=== PATIENT | male | born 1975 | race Caucasian/White ===

== ENCOUNTER 2020-12-07 11:07 | Emergency (ER) | payer MEDICAID, SELFPAY ==
--- NOTE | ~2020-12-07 | CT_ITS ---
EXAMINATION: CT BRAIN AND CT CERVICAL SPINE CLINICAL INFORMATION: Extreme AMS. Patient is unable to hold still. COMPARISON: None TECHNIQUE: Axial CT was performed however suboptimal and needs to be repeated. Axial 3 mm thin and reformatted 2 minutes in sagittal coronal images of cervical spine were obtained without contrast. DLP 1619. FINDINGS: BRAIN: The exam is suboptimal and needs to be repeated. CERVICAL SPINE: There is normal cervical lordosis. The vertebral heights and alignment is normal. There is loss of C4-C5, C5-C6 and C6-C7 disc heights are normal. There is no visible acute fracture, dislocation or subluxation seen. The prevertebral and paravertebral soft tissues are normal. The airway is widely patent. The thyroid lobes are symmetric and normal. The lung apices are clear. There is moderate mucoperiosteal thickening left maxillary sinus. CT/CT cervical spine wo con IMPRESSION: Suboptimal CT brain imaging. Recommend repeat CT brain. There is no visible acute fracture, dislocation or subluxation of cervical spine. Moderate mucoperiosteal thickening left maxillary sinus.
--- NOTE | ~2020-12-07 | CT_ITS ---
EXAMINATION: CT HEAD WITHOUT CONTRAST CLINICAL INFORMATION: Altered mental status. COMPARISON: Repeat CT study from suboptimal study from earlier today at 1:21 PM TECHNIQUE: Contiguous axial imaging was performed from the skull base to vertex without intravenous administration of contrast. Coronal and sagittal reformatted images were obtained. This CT examination was performed using dose optimization techniques as appropriate, variously including the following: *Automated exposure control *Adjustment of mA and/or kV according to patient size (this includes techniques or standardized protocols for targeted exams where dose is matched to indication/reason for exam; i.e. extremities or head) *Use of iterative reconstruction technique DLP: 731 mGy-cm FINDINGS: There is no evidence of acute intracranial hemorrhage or territorial infarction. No abnormal mass effect or midline shift is seen. [place] to white matter differentiation is well preserved. No extra-axial fluid collections are identified. The ventricles are normal in size. There is no abnormal attenuation within the brain parenchyma. The osseous structures and soft tissues are normal. Mild mucosal thickening is seen in the maxillary and ethmoid sinuses bilaterally, left greater than right. A retention cyst versus inflammatory polyp at the anterior base of the left maxillary sinus measures 2.4 cm (image 107, series 6). Mild anterior nasal septal deviation, apex to the right. CT/CT head/brain wo con IMPRESSION: 1. No acute intracranial abnormality. 2. Inflammatory changes in the maxillary and ethmoid sinuses as detailed above.
--- NOTE | ~2020-12-07 | XR_ITS ---
EXAMINATION: XR CHEST CLINICAL INFORMATION: Altered mental status. COMPARISON: 12/30/2017 chest radiographs. TECHNIQUE: Frontal view of the chest was obtained. FINDINGS: Lower lung volumes limit evaluation. The lungs are clear. The heart and mediastinal structures are unremarkable. XR/XR chest 1V IMPRESSION: No acute cardiopulmonary process.
--- NOTE | ~2020-12-07 | CT_ITS ---
EXAMINATION: CT BRAIN AND CT CERVICAL SPINE CLINICAL INFORMATION: Extreme AMS. Patient is unable to hold still. COMPARISON: None TECHNIQUE: Axial CT was performed however suboptimal and needs to be repeated. Axial 3 mm thin and reformatted 2 minutes in sagittal coronal images of cervical spine were obtained without contrast. DLP 1619. FINDINGS: BRAIN: The exam is suboptimal and needs to be repeated. CERVICAL SPINE: There is normal cervical lordosis. The vertebral heights and alignment is normal. There is loss of C4-C5, C5-C6 and C6-C7 disc heights are normal. There is no visible acute fracture, dislocation or subluxation seen. The prevertebral and paravertebral soft tissues are normal. The airway is widely patent. The thyroid lobes are symmetric and normal. The lung apices are clear. There is moderate mucoperiosteal thickening left maxillary sinus. CT/CT head/brain wo con IMPRESSION: Suboptimal CT brain imaging. Recommend repeat CT brain. There is no visible acute fracture, dislocation or subluxation of cervical spine. Moderate mucoperiosteal thickening left maxillary sinus.
--- NOTE | 2020-12-07 10:02 | ECG_ITS ---
Test Reason : OVERDOSE Blood Pressure : / mmHG Vent. Rate : 098 BPM Atrial Rate : 098 BPM P-R Int : 150 ms QRS Dur : 100 ms QT Int : 394 ms P-R-T Axes : 054 034 043 degrees QTc Int : 503 ms Normal sinus rhythm Possible Left atrial enlargement Prolonged QT Abnormal ECG No previous ECGs available Referred By: Rahel Cosme Electronically Signed By:MAMTA PEACE
--- NOTE | 2020-12-07 10:03 | ED_ITS ---
HPI - Overdose General Chief Complaint: ETOH/Substance Use Stated Complaint: overdose Time Seen by Provider: 12/07/20 11:13 Source: patient and EMS Mode of arrival: EMS Limitations: altered mental status History of Present Illness complaint: other (AMS found down in bushes) Onset (ago): unknown Timing confirmed by: other (bystander) Intent: unwilling to say Context: Accidental Overdose: uncertain what happened Associated symptoms: lethargy (found sleeping in bushes confused no obvious trauma found with drug paraphernalia) Treatments Prior to Arrival: none Related Data Allergies Allergy/AdvReac Type Severity Reaction Status Date / Time No Known Allergies Allergy Verified 12/07/20 10:29 Review of Systems Review of Systems: ROS unable to be obtained due to altered mental status [facility] Past Medical History Medical History (Updated 12/07/20 @ 16:28 by Rahel Cosme DO) Opiate use Social History Social History (Updated 12/07/20 @ 10:20 by Rahel Cosme DO) Patient Tobacco Use Status: Tobacco use Unknown Use of substances other than those prescribed or required for medical reasons: Yes Advance Directives: Yes Advance Directives Information Provided: Yes Advance Directives on File: No Physical Exam Vital Signs: Vital Signs: Last Vital Signs Temp 98 F 12/07/20 10:29 Pulse 76 12/07/20 16:23 Resp 16 12/07/20 16:23 BP 178/110 H 12/07/20 16:23 Pulse Ox 98 12/07/20 16:23 Body Mass Index 23.0 Appearance: Alert. Oriented X2. Mild acute distress. Eyes: Pupils equal, round and reactive to light. 4mm slight vertical nystagmus ENT: Pharynx normal. Atraumatic Neck: Normal inspection. Neck supple. CVS: Normal heart rate and rhythm. Pulses normal. Respiratory: No respiratory distress. Breath sounds normal. Abdomen: Soft and non-tender. Skin: Skin warm and dry. Normal skin color. Normal skin turgor. Extremities: No lower extremity edema. No calf ttp Neuro: Oriented X 2. No motor deficit. No sensory deficit. Course Course Course Narrative: 2L of IVF and IV ativan for anxiety ordered repeat IV ativan for anxiety signed out to Dr. Paulino pending further workup and observation MDM - Overdose MDM Narrative Medical decision making narrative: 45 yo male hx of opiate use on methadone found with a bag of drug paraphernalia - at this time altered and slightly agitated with no signs of trauma, needs head CT, drug screen, given his nystagmus I am wondering if he has PCP on board. Dispo per results and clearance of substance. Lab Data Result diagrams: 12/07/20 10:22 12/07/20 10:22 Labs: Lab Results 12/07/20 12/07/20 12/07/20 Range/Units 10:22 10:22 10:22 WBC 8.7 (4.8-10.8) X10*3/uL RBC 4.50 L (4.60-5.80) X10*6/uL Hgb 12.3 L (14.0-18.0) g/dl Hct 38.4 L (42-52) % MCV 85.3 (80-98) fL MCH 27.3 (27.0-33.0) pg MCHC 32.0 (31.0-36.0) g/dl RDW 15.7 (11.0-16.0) % Plt Count 219 (160-400) X10*3/uL MPV 10.6 (9.4-12.4) fL Immature Gran % (Auto) 0.5 H (0.0-0.4) % Neut % (Auto) 81.3 H (45-73) % Lymph % (Auto) 10.3 L (20-40) % [place] % (Auto) 7.6 (2-11) % Eos % (Auto) 0.2 (0-4) % Baso % (Auto) 0.1 (0-2) % Lymph # (Auto) 0.9 L (1.2-4.9) X10*3/uL [place] # (Auto) 0.7 (0.1-1.2) X10*3/uL Eos # (Auto) 0.0 (0.0-0.4) X10*3/uL Baso # (Auto) 0.0 (0.0-0.2) X10*3/uL Abs Immat Gran (auto) 0.04 H (0.00-0.03) X10*3/uL Absolute Neuts (auto) 7.0 (2.0-8.3) X10*3/uL Absolute Nucleated RBC 0.000 (0.0-0.012) X10*3/uL Nucleated RBC % (auto) 0.0 (0.0-0.2) /100WBC VBG pH (7.32-7.43) VBG pCO2 mmHg VBG pO2 mmHg VBG HCO3 (22-26) mmol/L VBG O2 Saturation % VBG Base Excess mmol/L Sodium 134 L (135-145) mmol/L Potassium 4.0 (3.3-5.1) mmol/L Chloride 101 (96-108) mmol/L Carbon Dioxide 22 (22-29) mmol/L Anion Gap 15 (12-20) BUN 21 H (9-16) mg/dL Creatinine 0.87 (0.5-1.4) mg/dL Estim Creat Clear Calc 115.7 Estimated GFR > 60 Random Glucose 130 H (60-115) mg/dL Calcium 8.8 (8.4-10.2) mg/dL Magnesium (1.6-2.6) mg/dL Total Bilirubin (0.0-1.0) mg/dL Direct Bilirubin (0.0-0.5) mg/dL AST (5-37) U/L ALT (0-40) U/L Alkaline Phosphatase (39-117) U/L Ammonia 21 (13-55) umol/L Total Creatine Kinase 1105 H (38-174) U/L Troponin I High Sens (<3.5-35.0) ng/L Total Protein (6.5-8.0) g/dL Albumin (3.5-5.0) g/dL Lipase (8-78) U/L TSH (0.32-4.0) uIU/mL Acetaminophen < 1 (<30) mcg/mL Ethyl Alcohol mg/dL COVID-19 ([facility]) (Negative) COVID-19 Clin Com 12/07/20 12/07/20 12/07/20 Range/Units 10:22 10:22 10:22 WBC (4.8-10.8) X10*3/uL RBC (4.60-5.80) X10*6/uL Hgb (14.0-18.0) g/dl Hct (42-52) % MCV (80-98) fL MCH (27.0-33.0) pg MCHC (31.0-36.0) g/dl RDW (11.0-16.0) % Plt Count (160-400) X10*3/uL MPV (9.4-12.4) fL Immature Gran % (Auto) (0.0-0.4) % Neut % (Auto) (45-73) % Lymph % (Auto) (20-40) % [place] % (Auto) (2-11) % Eos % (Auto) (0-4) % Baso % (Auto) (0-2) % Lymph # (Auto) (1.2-4.9) X10*3/uL [place] # (Auto) (0.1-1.2) X10*3/uL Eos # (Auto) (0.0-0.4) X10*3/uL Baso # (Auto) (0.0-0.2) X10*3/uL Abs Immat Gran (auto) (0.00-0.03) X10*3/uL Absolute Neuts (auto) (2.0-8.3) X10*3/uL Absolute Nucleated RBC (0.0-0.012) X10*3/uL Nucleated RBC % (auto) (0.0-0.2) /100WBC VBG pH (7.32-7.43) VBG pCO2 mmHg VBG pO2 mmHg VBG HCO3 (22-26) mmol/L VBG O2 Saturation % VBG Base Excess mmol/L Sodium (135-145) mmol/L Potassium (3.3-5.1) mmol/L Chloride (96-108) mmol/L Carbon Dioxide (22-29) mmol/L Anion Gap (12-20) BUN (9-16) mg/dL Creatinine (0.5-1.4) mg/dL Estim Creat Clear Calc Estimated GFR Random Glucose (60-115) mg/dL Calcium (8.4-10.2) mg/dL Magnesium 2.0 (1.6-2.6) mg/dL Total Bilirubin 0.5 (0.0-1.0) mg/dL Direct Bilirubin 0.3 (0.0-0.5) mg/dL AST 47 H (5-37) U/L ALT 28 (0-40) U/L Alkaline Phosphatase 93 (39-117) U/L Ammonia (13-55) umol/L Total Creatine Kinase (38-174) U/L Troponin I High Sens 7.8 (<3.5-35.0) ng/L Total Protein 7.2 (6.5-8.0) g/dL Albumin 3.8 (3.5-5.0) g/dL Lipase 16 (8-78) U/L TSH (0.32-4.0) uIU/mL Acetaminophen (<30) mcg/mL Ethyl Alcohol < 10 mg/dL COVID-19 ([facility]) (Negative) COVID-19 Clin Com 12/07/20 12/07/20 12/07/20 Range/Units 10:22 10:30 13:50 WBC (4.8-10.8) X10*3/uL RBC (4.60-5.80) X10*6/uL Hgb (14.0-18.0) g/dl Hct (42-52) % MCV (80-98) fL MCH (27.0-33.0) pg MCHC (31.0-36.0) g/dl RDW (11.0-16.0) % Plt Count (160-400) X10*3/uL MPV (9.4-12.4) fL Immature Gran % (Auto) (0.0-0.4) % Neut % (Auto) (45-73) % Lymph % (Auto) (20-40) % [place] % (Auto) (2-11) % Eos % (Auto) (0-4) % Baso % (Auto) (0-2) % Lymph # (Auto) (1.2-4.9) X10*3/uL [place] # (Auto) (0.1-1.2) X10*3/uL Eos # (Auto) (0.0-0.4) X10*3/uL Baso # (Auto) (0.0-0.2) X10*3/uL Abs Immat Gran (auto) (0.00-0.03) X10*3/uL Absolute Neuts (auto) (2.0-8.3) X10*3/uL Absolute Nucleated RBC (0.0-0.012) X10*3/uL Nucleated RBC % (auto) (0.0-0.2) /100WBC VBG pH 7.44 H (7.32-7.43) VBG pCO2 35 mmHg VBG pO2 45 mmHg VBG HCO3 24 (22-26) mmol/L VBG O2 Saturation 77.0 % VBG Base Excess 0.8 mmol/L Sodium (135-145) mmol/L Potassium (3.3-5.1) mmol/L Chloride (96-108) mmol/L Carbon Dioxide (22-29) mmol/L Anion Gap (12-20) BUN (9-16) mg/dL Creatinine (0.5-1.4) mg/dL Estim Creat Clear Calc Estimated GFR Random Glucose (60-115) mg/dL Calcium (8.4-10.2) mg/dL Magnesium (1.6-2.6) mg/dL Total Bilirubin (0.0-1.0) mg/dL Direct Bilirubin (0.0-0.5) mg/dL AST (5-37) U/L ALT (0-40) U/L Alkaline Phosphatase (39-117) U/L Ammonia (13-55) umol/L Total Creatine Kinase (38-174) U/L Troponin I High Sens (<3.5-35.0) ng/L Total Protein (6.5-8.0) g/dL Albumin (3.5-5.0) g/dL Lipase (8-78) U/L TSH 1.78 (0.32-4.0) uIU/mL Acetaminophen (<30) mcg/mL Ethyl Alcohol mg/dL COVID-19 ([facility]) Negative (Negative) COVID-19 Clin Com See Note ECG Data Attestation: I personally reviewed and interpreted this ECG as follows: ECG interpretation date: 12/07/20 ECG interpretation time: 10:19 Interpretation: Rate: 98 Rhythm: NSR [place]: normal Normal P waves. Normal TRAVIS. Normal QRS complex. ST T wave : no YARA qTC: prolonged prior studies: artifact noted no acute ischemia The study has been interpreted contemporaneously by me. . Critical Care Time Critical Care Time Critical Care Time: Yes Total Critical Care Time: 35 Attestation: repeat IV ativan, IVF I attest to this time spent taking care of the patient Discharge Plan Discharge Clinical Impression: Acute alteration in mental status
[2020-12-07 10:27] LABS: MANUAL DIFF FLAG NO
[2020-12-07 10:29] VITALS: BP 197/99; BP 200/120; PULSE 110; PULSE 114; RESP 16; TEMP 36.6; O2SAT 97; BMI 23.0
[2020-12-07 10:30] LABS: Basophils Percent Auto 0.1 % (0-2); Eosinophils Percent Auto 0.2 % (0-4); Hematocrit 38.4 % (42-52); Hemoglobin 12.3 g/dl (14.0-18.0); Imm Gran Abs Auto 0.04 X10*3/uL (0.00-0.03); Imm Gran Pct Auto 0.5 % (0.0-0.4); Lymphocytes Absolute Auto 0.9 X10*3/uL (1.2-4.9); Lymphocytes Percent Auto 10.3 % (20-40); Mean Corpuscular Hemoglobin 27.3 pg (27.0-33.0); Mean Corpuscular Volume 85.3 fL (80-98); Mean Platelet Volume 10.6 fL (9.4-12.4); Monocytes Absolute Auto 0.7 X10*3/uL (0.1-1.2); Monocytes Percent Auto 7.6 % (2-11); Neutrophils Percent Auto 81.3 % (45-73); Platelet Count 219 X10*3/uL (160-400); Red Cell Distribution Width 15.7 % (11.0-16.0); White Blood Count 8.7 X10*3/uL (4.8-10.8)
[2020-12-07 10:35] LABS: Venous Blood Gas Refer to POC result
[2020-12-07 10:35] LABS: VBG Base Excess 0.8 mmol/L; VBG HCO3 24 mmol/L (22-26); VBG pCO2 35 mmHg; VBG pH 7.44 (7.32-7.43); VBG pO2 45 mmHg
[2020-12-07 10:43] LABS: Ammonia 21 umol/L (13-55)
[2020-12-07 10:51] LABS: Ethanol < 10 mg/dL
[2020-12-07 10:54] LABS: Alanine Aminotransferase 28 U/L (0-40); Albumin Level 3.8 g/dL (3.5-5.0); Alkaline Phosphatase 93 U/L (39-117); Aspartate Amino Transferase 47 U/L (5-37); Bilirubin Direct 0.3 mg/dL (0.0-0.5); Bilirubin Total 0.5 mg/dL (0.0-1.0); Lipase 16 U/L (8-78); Total Protein 7.2 g/dL (6.5-8.0)
[2020-12-07 10:55] LABS: Troponin-I High Sensitivity 7.8 ng/L (<3.5-35.0)
[2020-12-07 11:00] LABS: Acetaminophen LAB < 1 mcg/mL (<30); Anion Gap 15 (12-20); Blood Urea Nitrogen 21 mg/dL (9-16); Calcium 8.8 mg/dL (8.4-10.2); Carbon Dioxide 22 mmol/L (22-29); Chloride 101 mmol/L (96-108); Creatinine Clr Calc Pharmacy 115.7; Estimated Glomerular Filt Rate > 60; Glucose Random 130 mg/dL (60-115); Sodium 134 mmol/L (135-145)
[2020-12-07 11:10] LABS: Thyroid Stimulating Hormone 1.78 uIU/mL (0.32-4.0)
--- NOTE | 2020-12-07 11:22 | MHC.RECOVSUP ---
? Reason for consult:Continuity of care o Current location: [address] [place] [address] o Identified substance use concern:Heroin - Overdose - Withdrawal - Seeking ATS (detox) - Support ? Intervention: o o o Community resources provided o Harm reduction discussion ? Plan: o Patient awaiting crisis evaluation o Patient to follow up with [facility] after discharge ? Additional information:PT.is impaired and unable to assist in determining whether or not he wants to move forward with recovery.
[2020-12-07] MEDS: LORazepam 2 MG/ML VIAL IVPUSH ×2 (12:05→16:59)
[2020-12-07] MEDS: Lactated Ringers 1,000 ML 999 ML IV ×2 (12:06)
--- NOTE | 2020-12-07 13:39 | MHC.RECOVSUP ---
? Reason for consult:Continuity of care o Current location: [place] o Identified substance use concern: - Overdose - Withdrawal - Seeking ATS (detox) - Support ? Intervention: o ATS bed search started/completed/in process o MAT started or to be started o Community resources provided o Harm reduction discussion ? Plan: o Referral to [facility] o Bed search in progress to o Follow up tomorrow o Patient awaiting crisis evaluation o Patient to follow up with [facility] after discharge ? Additional information: Attempted to speak with patient again, the patient is still impaired and unable to speak coherently.
[2020-12-07 14:42] LABS: COVID-19 Test Negative (Negative); IDNOW Serial# 08D9AD1C
[2020-12-07] MEDS: LORazepam 2 MG/ML VIAL 1 MG IVPUSH (14:49)
[2020-12-07 16:23] VITALS: BP 178/110; PULSE 76; RESP 16; O2SAT 98
[2020-12-07] MEDS: 0.9 % Sodium Chloride 1,000 ML 999 ML IVCONT (17:33)
--- NOTE | 2020-12-07 18:59 | PC.NURSE ---
Patient changed and bath due to incontinence.
[2020-12-07 20:28] VITALS: BP 191/102; PULSE 70; RESP 16; O2SAT 99
--- NOTE | 2020-12-07 20:29 | PC.NURSE ---
Patient continues wakes easy but fall right back asleep. Patient too lethargic to trial food at this time.
[2020-12-07] MEDS: Dextrose 5 % and 0.45 % NaCl 1,000 ML 125 ML IVCONT (21:48)
[2020-12-08 06:20] LABS: Glucose Urine UA NEG (NEG); Leukocyte Esterase Urine NEG (NEG); Nitrite Urine NEG (NEG); Specific Gravity - Urine 1.015 (1.005-1.025); Urine Blood NEG (NEG); Urine Ketones 5 MG/DL (NEG); Urine Protein NEG (NEG-TRACE)
[2020-12-08 06:21] LABS: Appearance Urine CLEAR; Color Urine YELLOW
[2020-12-08 06:42] LABS: Amphetamine Screen Urine Not Detected (Not Detect); Barbiturates, Urine Not Detected (Not Detect); Benzodiazepines Screen Urine Not Detected (Not Detect); Cannabinoid Screen Urine POSITIVE (Not Detect); Cocaine Screen Urine POSITIVE (Not Detect); Fentanyl, urine POSITIVE (Not Detect); Opiate Screen Urine POSITIVE (Not Detect); Phencyclidine Screen Urine Not Detected (Not Detect)
[2020-12-08 06:45] VITALS: BP 166/99; PULSE 56; RESP 16; TEMP 36.6; O2SAT 98
[2020-12-08] MEDS: Dextrose 5 % and 0.45 % NaCl 1,000 ML 125 ML IVCONT (07:00)
--- NOTE | 2020-12-08 07:47 | PC.NURSE ---
THIS TECH ATTEMPTED BLOOD DRAW, PATIENT SWUNG ARM UPON NEEDLE STICK. UNABLE TO DRAW LABS AT THIS TIME.
--- NOTE | 2020-12-08 09:22 | PC.NURSE ---
pt ambulatory to bathroom with unsteady gait. He is oriented to self, place, off by one day on date, did not know what time it was. Pt gives vague answers when asked questions about where he lives, how he wopuld get home.
--- NOTE | 2020-12-08 13:27 | PC.NURSE ---
sleeping chest rise noted.
--- NOTE | 2020-12-08 16:04 | PC.NURSE ---
woke patient to ambulate in hale. HE has slow gait. He is oriented to place and situation, states he does not remember coming in. Pt states he is homeless, seeking to stay the night in the ER. Explained pt would have to find [facility]. aware.
== END 2020-12-08 16:48 | disposition home or self-care (01) ==
PROVIDERS: Internal Medicine; Emergency Provider Emergency Medicine
DX: R41.82 Altered mental status, unspecified (principal); F11.20 Opioid dependence, uncomplicated; Z20.822 Contact with and (suspected) exposure to COVID-19
CPT/HCPCS: 36415; 70450; 71045; 72125; 80048; 80076; 80143; 80307; 81003; 82077; 82140; 82550; 82803; 83690; 83735; 84443; 84484; 85025; 87635; 93005; 96361; 96375; 96376; 99285; 99291; J2060

== ENCOUNTER 2021-03-02 01:42 | Inpatient (IN) | payer MEDICAID, SELFPAY ==
[2021-03-02] VITALS (10 sets, daily range): BP systolic 106–150; BP diastolic 67–95; PULSE 64–92; RESP 16–19; TEMP 36–37.3; O2SAT 96–98; BMI 22.9
--- NOTE | 2021-03-02 | ECG_ITS ---
Test Reason : EXTREMITY SWELLING Blood Pressure : / mmHG Vent. Rate : 078 BPM Atrial Rate : 078 BPM P-R Int : 148 ms QRS Dur : 120 ms QT Int : 390 ms P-R-T Axes : 030 048 037 degrees QTc Int : 444 ms Normal sinus rhythm Non-specific intra-ventricular conduction delay Borderline ECG When compared with ECG of 07-DEC-2020 10:17, Nonspecific T wave abnormality no longer evident in Inferior leads QT has shortened Heart rate has decreased Referred By: Giovanni Treviño Electronically Signed By:MICHAEL ANAYA MD
--- NOTE | ~2021-03-02 | XR_ITS ---
EXAMINATION: XR HAND, LEFT CLINICAL INFORMATION: Right, swollen COMPARISON: None TECHNIQUE: PA, lateral, and oblique views of the left hand. FINDINGS: Osseous alignment is anatomic. Chronic appearing fragment adjacent to the distal ulna. No evidence of acute fracture. Prominent soft tissue swelling noted around the metacarpals and at the wrist. XR/XR hand LT 2V IMPRESSION: Soft tissue swelling without acute osseous findings.
--- NOTE | ~2021-03-02 | CT_ITS ---
EXAMINATION: CT LEFT FOREARM WITHOUT CONTRAST. CLINICAL INFORMATION: History of IVDA. Significant swelling left main. COMPARISON: Left hand x-rays 03/02/2021. TECHNIQUE: 2 mm thin axial and reformatted 2 mm thin sagittal and coronal images of left forearm were obtained following IV 85 mL Omnipaque 350. FINDINGS: There is moderate left dorsal and palmar soft tissue edema involving the left hand and entire left forearm. There is no underlying abscess or gas collection. There is no visible fracture or cortical abnormality involving the radius or ulna. Visualized carpal bones and intercarpal joint spaces are maintained normal. No bony erosive changes or fractures involving the wrist. CT/CT forearm LT w con IMPRESSION: Diffuse anterior and posterior compartment cellulitis involving the left hand and entire left forearm. No evidence of abscess or bony abnormality.
[2021-03-02 02:50] LABS: MANUAL DIFF FLAG NO
[2021-03-02 02:51] LABS: Basophils Percent Auto 0.4 % (0-2); Eosinophils Absolute Auto 0.2 X10*3/uL (0.0-0.4); Eosinophils Percent Auto 1.8 % (0-4); Hematocrit 33.3 % (42.0-52.0); Hemoglobin 10.6 g/dl (14.0-18.0); Imm Gran Abs Auto 0.05 X10*3/uL (0.00-0.03); Imm Gran Pct Auto 0.5 % (0.0-0.4); Lymphocytes Absolute Auto 2.5 X10*3/uL (1.2-4.9); Lymphocytes Percent Auto 22.6 % (20-40); Mean Corpuscular HGB Conc 31.8 g/dl (31.0-36.0); Mean Corpuscular Hemoglobin 26.9 pg (27.0-33.0); Mean Corpuscular Volume 84.5 fL (80.0-98.0); Mean Platelet Volume 9.3 fL (9.4-12.4); Monocytes Absolute Auto 1.2 X10*3/uL (0.1-1.2); Monocytes Percent Auto 11.1 % (2-11); Neutrophils Percent Auto 63.6 % (45-73); Platelet Count 413 X10*3/uL (160-400); Red Blood Count 3.94 X10*6/uL (4.60-5.80); Red Cell Distribution Width 13.9 % (11.0-16.0); White Blood Count 10.9 X10*3/uL (4.8-10.8)
[2021-03-02 03:04] LABS: Lactic Acid 1.3 mmol/L (0.5-2.0)
[2021-03-02 03:08] LABS: Alanine Aminotransferase 17 U/L (0-40); Albumin Level 3.5 g/dL (3.5-5.0); Alkaline Phosphatase 92 U/L (39-117); Anion Gap 14 (12-20); Aspartate Amino Transferase 24 U/L (5-37); Bilirubin Total 0.2 mg/dL (0.0-1.0); Blood Urea Nitrogen 12 mg/dL (9-16); Calcium 8.7 mg/dL (8.4-10.2); Carbon Dioxide 25 mmol/L (22-29); Chloride 98 mmol/L (96-108); Creatinine Clr Calc Pharmacy 118.4; Estimated Glomerular Filt Rate > 60; Glucose Random 118 mg/dL (60-115); Potassium 4.2 mmol/L (3.3-5.1); Sodium 133 mmol/L (135-145); Total Protein 7.4 g/dL (6.5-8.0)
[2021-03-02] MEDS: Piperacillin Sodium/Tazobactam 3.375 GM in 0.9 % Sodium Chloride 50 ML IV ×4 (03:16→21:18)
[2021-03-02] MEDS: vancomycin HCL 1,000 MG in 0.9 % Sodium Chloride 250 ML 270 MG IV ×2 (03:57→11:30)
--- NOTE | 2021-03-02 04:08 | ED_ITS ---
HPI - Extremity Problem General Chief complaint: Extremity Problem Stated complaint: swollen right hand Time Seen by Provider: 03/02/21 02:36 Source: patient Mode of arrival: ambulatory History of Present Illness HPI Narrative: 45-year-old male with history IVDA and recently began methadone program on Sunday. Who presents today with significant redness/swelling/induration to the left hand extending proximally to mid forearm that he states has been worsening over the past 2-3 days and denies any fevers, chills. Related Data Allergies Allergy/AdvReac Type Severity Reaction Status Date / Time No Known Allergies Allergy Verified 03/02/21 02:25 Review of Systems Review of Systems: Pertinent positives and negatives as stated in HPI and 10 point review of systems is otherwise negative. [facility] Past Medical History Source: nursing notes reviewed Medical History Opiate use Social History Social History Patient Tobacco Use Status: Tobacco use Unknown Advance Directives: No Advance Directives Information Provided: Yes Physical Exam Vital Signs: Vital Signs: Last Vital Signs Temp 99.1 F 03/02/21 04:00 Pulse 92 03/02/21 04:00 Resp 16 03/02/21 04:00 BP 124/67 03/02/21 04:00 Pulse Ox 97 03/02/21 04:00 Body Mass Index 22.9 VITAL SIGNS: Reviewed. GENERAL: Appears older than stated age, in no acute distress. HEAD: Normocephalic/atraumatic EYES: PERRLA, EOMI OROPHARYNX: no oral lesions noted, posterior pharynx clear NECK: Supple, no adenopathy LUNGS: Normal breath sounds. No adventitious sounds or accessory muscle use. SpO2<97> CARDIOVASCULAR: Regular rate and rhythm without noted murmurs ABDOMEN: Soft, non-tender, non-distended with bowel sounds. LEFT UPPER EXTREMITY: Significant redness, swelling, induration to left hand that extends proximally into mid forearm without discrete area of fluctuance noted. SKIN: Inspection of the skin reveals no rashes NEUROLOGIC: Alert and oriented x 4. Strength and sensation to light touch were grossly intact x 4. Course Course Course Narrative: 45-year-old male with history and clinical presentation consistent with left upper extremity cellulitis and was treated with Zosyn/ vancomycin and is otherwise hemodynamically stable but will likely require a short course of IV antibiotics. Review of remaining investigation demonstrating mild leukocytosis and taken in conjunction with clinical findings consistent with significant cellulitis. This case was discussed with the inpatient hospitalist who accepts admission. MDM - Extremity (Nontraumatic) Lab Data Result diagrams: 03/02/21 02:45 03/02/21 02:45 Labs: Lab Results 03/02/21 03/02/21 03/02/21 Range/Units 02:45 02:45 02:45 WBC 10.9 H (4.8-10.8) X10*3/uL RBC 3.94 L (4.60-5.80) X10*6/uL Hgb 10.6 L (14.0-18.0) g/dl Hct 33.3 L (42.0-52.0) % MCV 84.5 (80.0-98.0) fL MCH 26.9 L (27.0-33.0) pg MCHC 31.8 (31.0-36.0) g/dl RDW 13.9 (11.0-16.0) % Plt Count 413 H (160-400) X10*3/uL MPV 9.3 L (9.4-12.4) fL Immature Gran % (Auto) 0.5 H (0.0-0.4) % Neut % (Auto) 63.6 (45-73) % Lymph % (Auto) 22.6 (20-40) % [place] % (Auto) 11.1 H (2-11) % Eos % (Auto) 1.8 (0-4) % Baso % (Auto) 0.4 (0-2) % Lymph # (Auto) 2.5 (1.2-4.9) X10*3/uL [place] # (Auto) 1.2 (0.1-1.2) X10*3/uL Eos # (Auto) 0.2 (0.0-0.4) X10*3/uL Baso # (Auto) 0.0 (0.0-0.2) X10*3/uL Abs Immat Gran (auto) 0.05 H (0.00-0.03) X10*3/uL Absolute Neuts (auto) 7.0 (2.0-8.3) x10*3/uL Absolute Nucleated RBC 0.000 (0.0-0.012) X10*3/uL Nucleated RBC % (auto) 0.0 (0.0-0.2) /100WBC Sodium 133 L (135-145) mmol/L Potassium 4.2 (3.3-5.1) mmol/L Chloride 98 (96-108) mmol/L Carbon Dioxide 25 (22-29) mmol/L Anion Gap 14 (12-20) BUN 12 (9-16) mg/dL Creatinine 0.80 (0.5-1.4) mg/dL Estim Creat Clear Calc 118.4 Estimated GFR > 60 Random Glucose 118 H (60-115) mg/dL Lactic Acid 1.3 (0.5-2.0) mmol/L Calcium 8.7 (8.4-10.2) mg/dL Total Bilirubin 0.2 (0.0-1.0) mg/dL AST 24 D (5-37) U/L ALT 17 (0-40) U/L Alkaline Phosphatase 92 (39-117) U/L Total Protein 7.4 (6.5-8.0) g/dL Albumin 3.5 (3.5-5.0) g/dL Urine Color Urine Appearance Urine pH (5.0-8.0) Ur Specific [place] (1.005-1.025) Urine Protein (NEG-TRACE) MG/DL Urine Glucose (UA) (NEG) MG/DL Urine Ketones (NEG) MG/DL Urine Blood (NEG) Urine Nitrite (NEG) Ur Leukocyte Esterase (NEG) Urine RBC (0) /HPF Urine WBC (0-4) /HPF Ur Squamous Epith Cells /LPF Urine Bacteria /LPF Urine Opiates Screen (Not Detect) Urine Fentanyl Screen (Not Detect) Ur Barbiturates Screen (Not Detect) Ur Phencyclidine Scrn (Not Detect) Ur Amphetamines Screen (Not Detect) U Benzodiazepines Scrn (Not Detect) Urine Cocaine Screen (Not Detect) U Marijuana (THC) Screen (Not Detect) COVID-19 ([facility]) (Negative) COVID-19 Clin Com 03/02/21 03/02/21 03/02/21 Range/Units 02:45 04:01 04:01 WBC (4.8-10.8) X10*3/uL RBC (4.60-5.80) X10*6/uL Hgb (14.0-18.0) g/dl Hct (42.0-52.0) % MCV (80.0-98.0) fL MCH (27.0-33.0) pg MCHC (31.0-36.0) g/dl RDW (11.0-16.0) % Plt Count (160-400) X10*3/uL MPV (9.4-12.4) fL Immature Gran % (Auto) (0.0-0.4) % Neut % (Auto) (45-73) % Lymph % (Auto) (20-40) % [place] % (Auto) (2-11) % Eos % (Auto) (0-4) % Baso % (Auto) (0-2) % Lymph # (Auto) (1.2-4.9) X10*3/uL [place] # (Auto) (0.1-1.2) X10*3/uL Eos # (Auto) (0.0-0.4) X10*3/uL Baso # (Auto) (0.0-0.2) X10*3/uL Abs Immat Gran (auto) (0.00-0.03) X10*3/uL Absolute Neuts (auto) (2.0-8.3) x10*3/uL Absolute Nucleated RBC (0.0-0.012) X10*3/uL Nucleated RBC % (auto) (0.0-0.2) /100WBC Sodium (135-145) mmol/L Potassium (3.3-5.1) mmol/L Chloride (96-108) mmol/L Carbon Dioxide (22-29) mmol/L Anion Gap (12-20) BUN (9-16) mg/dL Creatinine (0.5-1.4) mg/dL Estim Creat Clear Calc Estimated GFR Random Glucose (60-115) mg/dL Lactic Acid (0.5-2.0) mmol/L Calcium (8.4-10.2) mg/dL Total Bilirubin (0.0-1.0) mg/dL AST (5-37) U/L ALT (0-40) U/L Alkaline Phosphatase (39-117) U/L Total Protein (6.5-8.0) g/dL Albumin (3.5-5.0) g/dL Urine Color [place]ANGE Urine Appearance CLEAR Urine pH 6.5 (5.0-8.0) Ur Specific [place] 1.010 (1.005-1.025) Urine Protein NEG (NEG-TRACE) MG/DL Urine Glucose (UA) NEG (NEG) MG/DL Urine Ketones NEG (NEG) MG/DL Urine Blood NEG (NEG) Urine Nitrite NEG (NEG) Ur Leukocyte Esterase NEG (NEG) Urine RBC 0-2 (0) /HPF Urine WBC 0-2 (0-4) /HPF Ur Squamous Epith Cells TRACE /LPF Urine Bacteria TRACE /LPF Urine Opiates Screen POSITIVE H (Not Detect) Urine Fentanyl Screen POSITIVE H (Not Detect) Ur Barbiturates Screen Not Detected (Not Detect) Ur Phencyclidine Scrn Not Detected (Not Detect) Ur Amphetamines Screen Not Detected (Not Detect) U Benzodiazepines Scrn Not Detected (Not Detect) Urine Cocaine Screen POSITIVE H (Not Detect) U Marijuana (THC) Screen Not Detected (Not Detect) COVID-19 ([facility]) Negative (Negative) COVID-19 Clin Com See Note Discharge Plan Discharge Clinical Impression: Cellulitis of left upper extremity Patient Disposition: Admitted As Inpatient
[2021-03-02 04:20] LABS: COVID-19 Test Negative (Negative)
[2021-03-02 05:09] LABS: Appearance Urine CLEAR; Color Urine ORANGE; Glucose Urine UA NEG (NEG); Leukocyte Esterase Urine NEG (NEG); Nitrite Urine NEG (NEG); PH 6.5 (5.0-8.0); Urine Blood NEG (NEG); Urine Ketones NEG (NEG); Urine Protein NEG (NEG-TRACE)
[2021-03-02 05:16] LABS: Bacteria Urine TRACE /LPF; RBC Urine 0-2 /HPF (0); Squamous Epithelial Cell Urine TRACE /LPF; WBC Urine 0-2 /HPF (0-4)
[2021-03-02 05:22] LABS: Amphetamine Screen Urine Not Detected (Not Detect); Barbiturates, Urine Not Detected (Not Detect); Benzodiazepines Screen Urine Not Detected (Not Detect); Cannabinoid Screen Urine Not Detected (Not Detect); Cocaine Screen Urine POSITIVE (Not Detect); Fentanyl, urine POSITIVE (Not Detect); Opiate Screen Urine POSITIVE (Not Detect); Phencyclidine Screen Urine Not Detected (Not Detect)
--- NOTE | 2021-03-02 05:48 | P.HPHOSP_ITS ---
History of Present Illness Date of Service: 03/02/21 Chief Complaint: Left arm pain this is a 45 yo M with hx of hep see, alcohol abuse, IV drug use as the hospital with left arm pain and swelling. Patient reports that is been going on for 4 days. He injects at that site. He also complaining of severe redness, and difficulty moving his hand due to the swelling as well as pain. He also complains of being fevers, chills, and diaphoresis. he has no headache, no change in vision, no chest pain, no shortness of breath, no abdominal pain nausea or vomiting, no diarrhea constipation, no urinary symptoms and no lower extremity edema. On arrival to the ED patient hemodynamically stable with vital significant for temp of 99.1, heart rate of 92, respiratory rate of 16, blood pressure 138/91, satting 97% on room air Labs are significant for WBC count of 10.9, hemoglobin of 10.6, labs otherwise unremarkable. Urine drug screen positive for opioids, fentanyl, cocaine, and marijuana. hand x-ray shows soft tissue swelling without acute osseous findings Patient will be admitted for further management Review of Systems Review of Systems: Yes all other systems are reviewed and are negative [facility] Medical History (Updated 03/02/21 @ 05:57 by Sana Vail MD) Alcohol abuse Hepatitis C Opiate use Pertinent family history: Does not know his family Surgical History (Updated 03/02/21 @ 05:57 by Sana Vail MD) H/O hernia repair Social History (Updated 03/02/21 @ 05:58 by Sana Vail MD) Alcohol intake: current Patient Tobacco Use Status: Current everyday Tobacco user Cigarette Packs Per Day: 1.5 Use of substances other than those prescribed or required for medical reasons: Yes Substance Use Type: Crack/Cocaine, Heroin, Marijuana and Opiates Advance Directives: No Advance Directives Information Provided: Yes Meds Allergies Allergy/AdvReac Type Severity Reaction Status Date / Time No Known Allergies Allergy Verified 03/02/21 02:25 Active Medications: Current Medications Pharmacy Consult (Consult Rx Vancomycin Dosing) 1 each MISCELLANE DAILY PRN PRN Reason: Consult order Pharmacy Consult (Consult Rx Perform Med Rec) 1 each MISCELLANE ONCE PRN PRN Reason: Consult order Physical Exam Vital Signs and Narrative: Vital Signs: Last Vital Signs Temp 99.1 F 03/02/21 04:00 Pulse 92 03/02/21 04:00 Resp 16 03/02/21 04:00 BP 124/67 03/02/21 04:00 Pulse Ox 97 03/02/21 04:00 Body Mass Index 22.9 Const: General: cooperative and no acute distress Orientation/consciousness: patient oriented x3 Eyes: General: appearance normal, both eyes and all related structures Pupils: Equal, round and reactive pupils present Resp: Effort & Inspection: normal respiratory effort Auscultation: clear to auscultation bilaterally Cardio: Rate: regular rate Rhythm: regular rhythm GI: Palpation (GI): Soft to palpation Auscultation: normal bowel sounds Skin: Other: Edema, erythema, redness, severe tenderness of left upper extremity from hand all the way to the elbow General skin exam: no rashes or lesions noted Neuro: General: patient oriented x3 Cranial nerves: Yes Equal, round and reactive pupils present Cognition (Neuro): normal cognition Extrem: Other: Left upper extremity edema, erythema, tenderness, as well as warmth. Limited range of motion due to the swelling and pain Results Labs CBC and Chem 7: 03/02/21 02:45 03/02/21 02:45 Labs: Laboratory Results - last 24 hr 03/02/21 03/02/21 03/02/21 02:45 02:45 02:45 MCV 84.5 MCH 26.9 L MCHC 31.8 RDW 13.9 Plt Count 413 H MPV 9.3 L Immature Gran % (Auto) 0.5 H Neut % (Auto) 63.6 Lymph % (Auto) 22.6 [place] % (Auto) 11.1 H Eos % (Auto) 1.8 Baso % (Auto) 0.4 Lymph # (Auto) 2.5 [place] # (Auto) 1.2 Eos # (Auto) 0.2 Baso # (Auto) 0.0 Abs Immat Gran (auto) 0.05 H Absolute Neuts (auto) 7.0 Absolute Nucleated RBC 0.000 Nucleated RBC % (auto) 0.0 Anion Gap 14 Estim Creat Clear Calc 118.4 Estimated GFR > 60 Random Glucose 118 H Lactic Acid 1.3 Calcium 8.7 Total Bilirubin 0.2 AST 24 D ALT 17 Alkaline Phosphatase 92 Total Protein 7.4 Albumin 3.5 Urine Color Urine Appearance Urine pH Ur Specific [place] Urine Protein Urine Glucose (UA) Urine Ketones Urine Blood Urine Nitrite Ur Leukocyte Esterase Urine RBC Urine WBC Ur Squamous Epith Cells Urine Bacteria Urine Opiates Screen Urine Fentanyl Screen Ur Barbiturates Screen Ur Phencyclidine Scrn Ur Amphetamines Screen U Benzodiazepines Scrn Urine Cocaine Screen U Marijuana (THC) Screen COVID-19 (INGE) COVID-19 Clin Com 03/02/21 03/02/21 03/02/21 02:45 04:01 04:01 MCV MCH MCHC RDW Plt Count MPV Immature Gran % (Auto) Neut % (Auto) Lymph % (Auto) [place] % (Auto) Eos % (Auto) Baso % (Auto) Lymph # (Auto) [place] # (Auto) Eos # (Auto) Baso # (Auto) Abs Immat Gran (auto) Absolute Neuts (auto) Absolute Nucleated RBC Nucleated RBC % (auto) Anion Gap Estim Creat Clear Calc Estimated GFR Random Glucose Lactic Acid Calcium Total Bilirubin AST ALT Alkaline Phosphatase Total Protein Albumin Urine Color ORANGE Urine Appearance CLEAR Urine pH 6.5 Ur Specific [place] 1.010 Urine Protein NEG Urine Glucose (UA) NEG Urine Ketones NEG Urine Blood NEG Urine Nitrite NEG Ur Leukocyte Esterase NEG Urine RBC 0-2 Urine WBC 0-2 Ur Squamous Epith Cells TRACE Urine Bacteria TRACE Urine Opiates Screen POSITIVE H Urine Fentanyl Screen POSITIVE H Ur Barbiturates Screen Not Detected Ur Phencyclidine Scrn Not Detected Ur Amphetamines Screen Not Detected U Benzodiazepines Scrn Not Detected Urine Cocaine Screen POSITIVE H U Marijuana (THC) Screen Not Detected COVID-19 (INGE) Negative COVID-19 Clin Com See Note Imaging Radiologist's Impressions: Impressions Hand X-Ray 03/02/21 02:36 IMPRESSION: Soft tissue swelling without acute osseous findings. Assessment and Plan (1) Cellulitis of left upper extremity: Status: Acute (2) Alcohol abuse with withdrawal: Status: Acute (3) Opiate use: Status: Acute Is male with past medical history of IV drug presents to the hospital with left upper extremity cellulitis # cellulitis of left upper extremity - has significant edema, erythema, tenderness, as well as warmth - history of injecting in that arm - has leukocytosis, afebrile - will start him on IV antibiotics - follow cultures # alcohol abuse with potential for withdrawal - patient reports daily drinking, history of alcohol withdrawal - will start him on phenobarb protocol - thiamine and folic acid # opioid use disorder - patient reports that he is on methadone - will continue DVT prophylaxis: Lovenox Quality Stroke Does the patient have a stroke diagnosis?: No VTE Prior VTE?: No VTE Risk Level:: Medical - moderate - high VTE Device Contraindication: Treatment Not Indicated VTE Drug Contraindication: N/A - Med Ordered
[2021-03-02] MEDS: Morphine Sulfate 4 MG/ML CARTRIDGE IVPUSH (06:37)
--- NOTE | 2021-03-02 06:44 | PC.NURSE ---
This RN medicated with IV morphine per JUN for pain. This RN brought phenobarb per MAR to bedside to medicate pt. Pt informed that volume of phenobarb is too large for arm and needs to go into larger leg muscle. Pt aaox4, states No, no absolutely not. I'm all set with needles. No more needles. I'm all set. Pt educated on reason for phenobarb to prevent ETOH withdrawal, and pt states no, I'm all set. I don't need that. Pt continues to refuse phenobarb. Pt CIWA 0 as charted. Pt on air sampling and monitoring, seizure pads in place, stretcher in low locked position with both side rails raised. Dr Vail made aware of pt's refusal of phenobarb.
--- NOTE | 2021-03-02 07:06 | PHA.PROG ---
Admission Date/Time: March 02, 2021 05:47 Indication: Cellulitis Weight in k.575 kg Adjusted body weight in K.83 kg [place] body weight in K kg Obesity Dosing Indication % IBW: N/A Serum Creatinine - Last 168 Hours 03/02/21 02:45 Creatinine 0.80 Estimated CrCl and GFR - Last 168 Hours 03/02/21 02:45 Estim Creat Clear Calc 118.4 Estimated GFR > 60 Vancomycin Loading Dose: N/A - 1000 mg given in the ED at 0357, will start maintenance dose in 8 hours to create a LD Current Vancomycin Dosing Regimen: 1000 mg Q12H Date and Time for next Vancomycin Level to be drawn: 03/03 @ 999 Pharmacist Comments on Vancomycin Plan: First dose given in the ED on 03/02 @ 0357. Will given next dose in 8 hours at 1200 so vanco concentrations with be therapeutic after 4th dose. Expected AUC with 1000 mg Q12H is 451 with a trough of 13.4 Trough to be drawn 2 hours before 4th dose on 03/03 @ 1000 Pharmacy will monitor renal function daily Shania Winn PharmD Vancomycin dosing will take advantage of [employer] as a clinical decision support tool that uses Bayesian modeling to calculate individual patient's pharmacokinetic parameters and forecast the patient's drug concentration time course with the target goal AUC 24 range of 400 - 600 mg/L/hr.
--- NOTE | 2021-03-02 08:09 | PHA.MEDREC ---
Pharmacy Consult ? Medication Reconciliation Pharmacy has completed the medication reconciliation. Patient reports he use to have a bunch of psych medications but has not taken them for a while. I called the pharmacy to confirm what he reported was accurate and he was a good historian. The medications were last filled June 2020 are as followed: - Gabapentin 600 mg TID - Topamax 100 mg BID - Wellbutrin XL 150 mg QD - Clonidine 0.1 mg BID - Elquis 5 mg BID - ProAir Patient also reports he is on methadone. I confirmed with Shannon at [facility] that he takes 45 mg daily. Shania Winn, PharmD
[2021-03-02] MEDS: Enoxaparin Sodium 40 MG/0.4 ML SYRINGE SUBCUT (08:38)
[2021-03-02] MEDS: methADONE HCl 20 MG/2 ML ORAL.CONC 45 MG PO (08:38)
[2021-03-02] MEDS: PHENobarbitaL sodium 130 MG/ML VIAL 290 MG IM (08:39)
[2021-03-02] MEDS: 0.9 % Sodium Chloride Flush 3 ML SYRINGE IVFLUSH ×2 (08:40→18:38)
--- NOTE | 2021-03-02 08:59 | PC.NURSE ---
cooperative w security , pt reports needles in his bags, belongings secured in decon room and security checked the pt as well
--- NOTE | 2021-03-02 09:06 | PC.NURSE ---
PER SECURITY ALL PATIENTS BELONGINGS ARE IN DECON
[2021-03-02 10:01] LABS: MANUAL DIFF FLAG NO
[2021-03-02 10:08] LABS: Basophils Percent Auto 0.4 % (0-2); Eosinophils Absolute Auto 0.2 X10*3/uL (0.0-0.4); Eosinophils Percent Auto 2.6 % (0-4); Hematocrit 32.4 % (42.0-52.0); Hemoglobin 10.3 g/dl (14.0-18.0); Imm Gran Abs Auto 0.02 X10*3/uL (0.00-0.03); Imm Gran Pct Auto 0.3 % (0.0-0.4); Lymphocytes Absolute Auto 1.8 X10*3/uL (1.2-4.9); Lymphocytes Percent Auto 26.2 % (20-40); Mean Corpuscular HGB Conc 31.8 g/dl (31.0-36.0); Mean Corpuscular Hemoglobin 26.6 pg (27.0-33.0); Mean Corpuscular Volume 83.7 fL (80.0-98.0); Mean Platelet Volume 9.2 fL (9.4-12.4); Monocytes Absolute Auto 0.9 X10*3/uL (0.1-1.2); Monocytes Percent Auto 13.4 % (2-11); Neutrophils Percent Auto 57.1 % (45-73); Platelet Count 380 X10*3/uL (160-400); Red Blood Count 3.87 X10*6/uL (4.60-5.80); Red Cell Distribution Width 14.1 % (11.0-16.0); White Blood Count 6.9 X10*3/uL (4.8-10.8)
[2021-03-02 10:25] LABS: Anion Gap 7 (12-20); Blood Urea Nitrogen 10 mg/dL (9-16); Calcium 8.4 mg/dL (8.4-10.2); Carbon Dioxide 29 mmol/L (22-29); Chloride 104 mmol/L (96-108); Creatinine Clr Calc Pharmacy 124.6; Estimated Glomerular Filt Rate > 60; Glucose Random 106 mg/dL (60-115); Potassium 4.4 mmol/L (3.3-5.1); Sodium 136 mmol/L (135-145)
[2021-03-02] MEDS: PHENobarbitaL sodium 130 MG/ML VIAL 218 MG IM ×2 (11:30→15:17)
--- NOTE | 2021-03-02 14:34 | PM.EVENT ---
Event Note Date of Service: 03/02/21 Event Note: Day Team Note in Brief S Pt boarding in the ED, seen there Reports pain and erythema is improved as his is ROM in the hand Denies any fevers and chills. O Vitals - last documented and stable Gen - NAD, resting comfortable Chest - clear, RRR Ext - LUE with significant edema without any fluctuance; minimal erythema A/P 45 yo M with active IVDU who presents with LUE swelling of 5 days duration after injecting there continue IV antibiotics clinically appears improved await blood cultures to rule out bacteremia - likely 10-14 days of antibiotics d/w the patient the need to stay in the hospital at this time for treatment. He understands and is willing to stay at this time. Risks of AMA (worsening of his cellulitis with potential of loss of limb, bacteremia, endocarditis and even ) have been explained to him.
[2021-03-02] MEDS: PHENobarbitaL 15 MG TABLET 45 MG PO (21:18)
[2021-03-03] MEDS: 0.9 % Sodium Chloride Flush 3 ML SYRINGE IVFLUSH ×3 (00:23→18:23)
[2021-03-03] MEDS: vancomycin HCL 1,000 MG in 0.9 % Sodium Chloride 250 ML 270 MG IV (00:23)
[2021-03-03 03:35] VITALS: BP 134/99; PULSE 76; RESP 18; TEMP 36; O2SAT 96
[2021-03-03] MEDS: Piperacillin Sodium/Tazobactam 3.375 GM in 0.9 % Sodium Chloride 50 ML IV ×4 (04:06→21:35)
[2021-03-03] MEDS: methADONE HCl 20 MG/2 ML ORAL.CONC 45 MG PO (09:27)
[2021-03-03] MEDS: PHENobarbitaL 15 MG TABLET 45 MG PO ×2 (09:28→21:35)
--- NOTE | 2021-03-03 09:32 | HO.PM.IMPN ---
Subjective Subjective Date of Service: 03/03/21 Interval History: seen and examined this AM reports arm pain and swelling improved reports he was treated for endocarditis last year at [facility] denies fevers or chills refused labs this AM Review of Systems negative except interval history Physical Exam Vital Signs: Vital Signs: Last Vital Signs Temp 96.8 F 03/03/21 03:35 Pulse 76 03/03/21 03:35 Resp 18 03/03/21 03:35 BP 134/99 H 03/03/21 03:35 Pulse Ox 96 03/03/21 03:35 Body Mass Index 22.9 Const: Other: General - no acute distress, appears comfortable Cardiovascular - regular rate and rhythm, S1-S2 Lungs - normal respiratory effort, clear to auscultation bilaterally, no wheezing Abdomen - soft, nontender, no rebound or guarding Extremities - LUE with significant swelling - slightly less compared to yesterday, significant hand swelling, ROM in hand limited due to edema Neuro - awake and alert, no focal deficits Objective Data Active Medications Acetaminophen (Acetaminophen 325 Mg Tablet) 650 mg PO Q6H PRN PRN Reason: Pain, Mild (Pain Scale 1-3) Docusate Sodium (Docusate Sodium 100 Mg Capsule) 100 mg PO DAILY PRN PRN Reason: Constipation Enoxaparin Sodium (Enoxaparin Sodium 40 Mg/0.4 Ml Syringe) 40 mg SUBCUT Q24H [facility] Last Admin: 03/03/21 09:31 Dose: Not Given Documented by: EPHRAIM Non-Admin Reason: Patient Refused Piperacillin Sod/Tazobactam (Sod 3.375 gm/ Sodium Chloride) 50 mls @ 100 mls/hr IV Q6H [facility] Last Admin: 03/03/21 09:27 Dose: 100 mls/hr Documented by: EPHRAIM Vancomycin HCl 1,000 mg/ (Sodium Chloride) 270 mls @ 270 mls/hr IV Q12H [facility] Last Infusion: 03/03/21 02:08 Dose: 0 mls/hr Documented by: AINSLEY Medication (No Benzodiazepines) 1 each MISCELLANE DAILY [facility] Methadone HCl (Methadone Hcl 20 Mg/2 Ml Oral.Conc) 45 mg PO DAILY [facility] Last Admin: 03/03/21 09:27 Dose: 45 mg Documented by: EPHRAIM Morphine Sulfate (Morphine Sulfate 4 Mg/Ml Cartridge) 4 mg IVPUSH Q4H PRN; Protocol PRN Reason: Pain, Severe (Pain Scale 7-10) Last Admin: 03/02/21 06:37 Dose: 4 mg Documented by: LUBNA Ondansetron HCl (Ondansetron Hcl 4 Mg/2 Ml Vial) 4 mg IVPUSH Q8H PRN PRN Reason: Nausea and Vomiting Pharmacy Consult (Consult Rx Perform Med Rec) 1 each MISCELLANE ONCE PRN PRN Reason: Consult order Pharmacy Consult (Consult Rx Vancomycin Dosing) 1 each MISCELLANE DAILY PRN PRN Reason: Consult order Phenobarbital (Phenobarbital 15 Mg Tablet) 45 mg PO BID [facility]; Protocol Stop: 03/04/21 09:01 Last Admin: 03/03/21 09:28 Dose: 45 mg Documented by: EPHRAIM Phenobarbital (Phenobarbital 30 Mg Tablet) 30 mg PO BID [facility]; Protocol Stop: 03/06/21 09:01 Phenobarbital (Phenobarbital 30 Mg Tablet) 30 mg PO DAILY [facility]; Protocol Stop: 03/08/21 09:01 Sodium Chloride (0.9 % Sodium Chloride Flush 3 Ml Syringe) 3 ml IVFLUSH [facility] Last Admin: 03/03/21 09:27 Dose: 3 ml Documented by: EPHRAIM Labs CBC & Chem 7: 03/02/21 09:57 03/02/21 09:57 Labs: Laboratory Results - last 24 hr 03/02/21 03/02/21 09:57 09:57 MCV 83.7 MCH 26.6 L MCHC 31.8 RDW 14.1 Plt Count 380 MPV 9.2 L Immature Gran % (Auto) 0.3 Neut % (Auto) 57.1 Lymph % (Auto) 26.2 [place] % (Auto) 13.4 H Eos % (Auto) 2.6 Baso % (Auto) 0.4 Lymph # (Auto) 1.8 [place] # (Auto) 0.9 Eos # (Auto) 0.2 Baso # (Auto) 0.0 Abs Immat Gran (auto) 0.02 Absolute Neuts (auto) 4.0 Absolute Nucleated RBC 0.000 Nucleated RBC % (auto) 0.0 Anion Gap 7 L Estim Creat Clear Calc 124.6 Estimated GFR > 60 Random Glucose 106 Calcium 8.4 Microbiology Microbiology Results: Microbiology 03/02/21 02:58 Blood Culture - Preliminary Blood - Venous No growth after 24 hours. 03/02/21 02:45 Blood Culture - Preliminary Blood - Venous No growth after 24 hours. Assessment and Plan (1) Cellulitis of left upper extremity: Status: Acute Assessment and Plan: This is a 45 yo M with a PMH of OUD, actively using with last use about 4-5 days prior to admission, who presented to the ED with complaints of LUE swelling after injecting. He is admitted for further treamtent. 1. LUE Cellulitis due to IVDU swelling appears improved, but still remains significant; will check CT with contrast continue vancomcyin/zosyn for now blood cx negative at 24 hours patient refused labs this AM -- he has been encouraged to allow them 2. Alcohol abuse and high risk for withdrawal on phenobarb continue 3. OUD methadone Full Code DVT pptx, Lovenox Quality Stroke Does the patient have a stroke diagnosis?: No VTE Prior VTE?: No VTE Risk Level:: Medical - moderate - high VTE Device Contraindication: Treatment Not Indicated VTE Drug Contraindication: N/A - Med Ordered
[2021-03-03 10:25] LABS: Creatinine Clr Calc Pharmacy 118.4; Estimated Glomerular Filt Rate > 60
[2021-03-03 10:33] LABS: Vancomycin Trough 9.1 mcg/mL (10.0-20.0)
--- NOTE | 2021-03-03 10:45 | MHC.RECOVRN ---
Attempted to meet with pt with Yamile Mendez NP, to assess for withdrawal symptoms and desire to increase methadone dose. Pt recently began OTP and titration may be necessary while inpatient. Pt laying in bed, agitated and difficult to engage in conversation. Explained to pt how we could help, pt consistently states It doesn't matter. Do whatever. Reiterated that Addiction [facility] could adjust methadone dose if needed, pt declined to respond. Pt encouraged to notify RN if symptoms occur or if pt would like to discuss recovery further. T/w available if needed.
--- NOTE | 2021-03-03 10:47 | HE.PHANOTE ---
Vancomycin Dosing Addendum Vancomycin trough 9.1 this morning. Increasing dose from 1000 mg q12h to 1250 mg 12h for a predicted AUC of 496. Next trough due 03/04/21 @2100.
[2021-03-03 11:32] VITALS: BP 141/93; PULSE 75; RESP 18; TEMP 37.3; O2SAT 97
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
[2021-03-03] MEDS: iohexoL 350 MG/ML 100 ML INFUS..BTL IV (12:32)
[2021-03-03] MEDS: vancomycin HCL 1,250 MG in 0.9 % Sodium Chloride 250 ML 166.67 MG IV ×2 (12:46→23:24)
[2021-03-03 15:56] VITALS: BP 144/83; PULSE 70; RESP 17; TEMP 36.5; O2SAT 98
[2021-03-03 19:27] VITALS: BP 142/89; PULSE 78; RESP 17; TEMP 37.1; O2SAT 96
[2021-03-04] MEDS: Piperacillin Sodium/Tazobactam 3.375 GM in 0.9 % Sodium Chloride 50 ML IV ×2 (04:24→11:05)
[2021-03-04 07:18] VITALS: BP 160/90; PULSE 75; RESP 18; TEMP 36.6; O2SAT 99
[2021-03-04] MEDS: PHENobarbitaL 15 MG TABLET 45 MG PO (08:35)
[2021-03-04] MEDS: 0.9 % Sodium Chloride Flush 3 ML SYRINGE IVFLUSH (08:38)
[2021-03-04] MEDS: methADONE HCl 20 MG/2 ML ORAL.CONC 45 MG PO (08:38)
--- NOTE | 2021-03-04 09:08 | P.PNIM_ITS ---
Subjective Subjective Date of Service: 03/04/21 Interval History: seen and examined this AM continue to improve daily pain slowly improving denies any fevers or chills Review of Systems negative except interval history Physical Exam Vital Signs: Vital Signs: Last Vital Signs Temp 97.9 F 03/04/21 07:18 Pulse 75 03/04/21 07:18 Resp 18 03/04/21 07:18 BP 160/90 H 03/04/21 07:18 Pulse Ox 99 03/04/21 07:18 Body Mass Index 22.9 Const: Other: General - no acute distress, appears comfortable Cardiovascular - regular rate and rhythm, S1-S2 Lungs - normal respiratory effort, clear to auscultation bilaterally, no whee zing Abdomen - soft, nontender, no rebound or guarding Extremities - significant improvement in LUE swelling, able to make a fist, erythema resolved Neuro - awake and alert, no focal deficits Objective Data Active Medications Acetaminophen (Acetaminophen 325 Mg Tablet) 650 mg PO Q6H PRN PRN Reason: Pain, Mild (Pain Scale 1-3) Docusate Sodium (Docusate Sodium 100 Mg Capsule) 100 mg PO DAILY PRN PRN Reason: Constipation Enoxaparin Sodium (Enoxaparin Sodium 40 Mg/0.4 Ml Syringe) 40 mg SUBCUT Q24H [facility] Last Admin: 03/04/21 08:39 Dose: Not Given Documented by: AILEEN Non-Admin Reason: Patient Refused Piperacillin Sod/Tazobactam (Sod 3.375 gm/ Sodium Chloride) 50 mls @ 100 mls/hr IV Q6H [facility] Last Infusion: 03/04/21 05:36 Dose: 0 mls/hr Documented by: AINSLEY Vancomycin HCl 1,250 mg/ (Sodium Chloride) 250 mls @ 166.667 mls/hr IV Q12H [facility] Last Infusion: 03/04/21 02:32 Dose: 0 mls/hr Documented by: AINSLEY Medication (No Benzodiazepines) 1 each MISCELLANE DAILY [facility] Methadone HCl (Methadone Hcl 20 Mg/2 Ml Oral.Conc) 45 mg PO DAILY [facility] Last Admin: 03/04/21 08:38 Dose: 45 mg Documented by: AILEEN Morphine Sulfate (Morphine Sulfate 4 Mg/Ml Cartridge) 4 mg IVPUSH Q4H PRN; Protocol PRN Reason: Pain, Severe (Pain Scale 7-10) Last Admin: 03/02/21 06:37 Dose: 4 mg Documented by: LUBNA Ondansetron HCl (Ondansetron Hcl 4 Mg/2 Ml Vial) 4 mg IVPUSH Q8H PRN PRN Reason: Nausea and Vomiting Pharmacy Consult (Consult Rx Perform Med Rec) 1 each MISCELLANE ONCE PRN PRN Reason: Consult order Pharmacy Consult (Consult Rx Vancomycin Dosing) 1 each MISCELLANE DAILY PRN PRN Reason: Consult order Phenobarbital (Phenobarbital 30 Mg Tablet) 30 mg PO BID [facility]; Protocol Stop: 03/06/21 09:01 Phenobarbital (Phenobarbital 30 Mg Tablet) 30 mg PO DAILY [facility]; Protocol Stop: 03/08/21 09:01 Sodium Chloride (0.9 % Sodium Chloride Flush 3 Ml Syringe) 3 ml IVFLUSH QSHIFT [facility] Last Admin: 03/04/21 08:38 Dose: 3 ml Documented by: AILEEN Labs CBC & Chem 7: 03/02/21 09:57 03/03/21 10:00 Labs: Laboratory Results - last 24 hr 03/03/21 03/03/21 03/03/21 10:00 10:00 10:00 Estim Creat Clear Calc Cancelled 118.4 Estimated GFR Cancelled > 60 Vancomycin Trough 9.1 L Microbiology Microbiology Results: Microbiology 03/02/21 02:45 Blood Culture - Preliminary Blood - Venous No growth after 48 hours. 03/02/21 02:58 Blood Culture - Preliminary Blood - Venous Prelim: GPC Gram Stain only Assessment and Plan (1) Cellulitis of left upper extremity: Status: Acute Assessment and Plan: This is a 45 yo M with a PMH of OUD, actively using with last use about 4-5 days prior to admission, who presented to the ED with complaints of LUE swelling after injecting. He is admitted for further treamtent. 1. LUE Cellulitis due to IVDU - from hand to elbow (>50% of limb) 1/2 blood cx positive for GPC -- suspect coag neg staph, will await final result -- if negative, anticipate transition to Augmentin/Doxy for [address] consistent with diffuse cellulitis -- no body involvement continue vancomcyin/zosyn for now 2. Alcohol abuse and high risk for withdrawal on phenobarb continue 3. OUD methadone CARE team consulted Full Code DVT pptx, Lovenox dispo: anticipate d/c within the next 24 hours Quality Stroke Does the patient have a stroke diagnosis?: No VTE Prior VTE?: No VTE Risk Level:: Medical - moderate - high VTE Device Contraindication: Treatment Not Indicated VTE Drug Contraindication: N/A - Med Ordered
[2021-03-04 11:27] VITALS: BP 132/81; PULSE 71; RESP 18; TEMP 36.6; O2SAT 96
[2021-03-04] MEDS: vancomycin HCL 1,250 MG in 0.9 % Sodium Chloride 250 ML 166.67 MG IV (11:49)
--- NOTE | 2021-03-04 12:37 | PM.DS ---
DS: Providers Provider Date of Service: 03/04/21 Date of admission: 03/02/21 05:47 Date of discharge: 03/04/21 Primary care physician: [facility] Consults: 03/04/21 07:39 Consult to Care Team Routine Comment: Reason for consultation: polysubstance abuse DS: Diagnosis Discharge Diagnosis (1) Cellulitis of left upper extremity: Status: Acute DS: Summary Hospital Course Hospital Course: HPI From the admission H&P: this is a 45 yo M with hx of hep see, alcohol abuse, IV drug use as the hospital with left arm pain and swelling.? Patient reports that is been going on for 4 days.? He injects at that site.? He also complaining of severe redness, and difficulty moving his hand due to the swelling as well as pain.? He also complains of being fevers, chills, and diaphoresis.? he has no headache, no change in vision, no chest pain, no shortness of breath, no abdominal pain nausea or vomiting, no diarrhea constipation, no urinary symptoms and no lower extremity edema. On arrival to the ED patient hemodynamically stable with vital significant for temp of 99.1, heart rate of 92, respiratory rate of 16, blood pressure 138/91, satting 97% on room air Labs are significant for? WBC count of 10.9, hemoglobin of 10.6, labs otherwise unremarkable.? Urine drug screen positive for opioids, fentanyl, cocaine, and marijuana.? hand x-ray shows soft tissue swelling without acute osseous findings Patient will be admitted for further management Hospital Course: Patient was admitted for LUE celluitis (>50% of the Limb). CT scan was checked which was negative any osseous abnormalities / abscess. He was treated with IV vancomcyin and zosyn. His blood cultures were negative @ 48 hours. He had significant improvement in his well and ROM of the hand/wrist/elbow. He was seen by recovery team for his polysubstance abuse but was resistant to help. After I spoke to him personally about allowing us to help him with his substance abuse, he agreed to meet with addiction medicine. The plan was for him to be discharged after this, but he ultimately changed his mind and became combative. Security was called and the patient ultimately left against medical advice prior to completion of his care. Time Spent with Patient Time attestation: Total time spent providing and/or coordinating discharge services: Discharge coordination time: Greater than 30 minutes Quality: Stroke Does the patient have a stroke diagnosis?: No Physical Exam Vital Signs: Vital Signs: Last Vital Signs Temp 97.9 F 03/04/21 11:27 Pulse 71 03/04/21 11:27 Resp 18 03/04/21 11:27 BP 132/81 03/04/21 11:27 Pulse Ox 96 03/04/21 11:27 Body Mass Index 22.9 Const: Other: General - no acute distress, appears comfortable Cardiovascular - regular rate and rhythm, S1-S2 Lungs - normal respiratory effort, clear to auscultation bilaterally, no wheezing Abdomen - soft, nontender, no rebound or guarding Extremities - LUE minimal swelling and no erythema. ROM in wrist nearly normal; no bony tenderness, neurvascularly in tact Neuro - awake and alert, no focal deficits; aaox3 DS: Data Data Completed and Pending Labs on day of discharge: Preliminary micro results at discharge 03/02/21 02:45 Blood Culture - Preliminary Blood - Venous No growth after 48 hours. Discharge Plan Discharge Patient Disposition: Left Against Medical Advice Discharge Diagnosis: LUE Cellulitis Referrals: [facility] [Primary Care Provider] - 1 Week Discharge Medications: New amoxicillin-pot clavulanate [Augmentin] 875-125 mg tablet 1 tab PO BID Qty: 14 RF: 0 doxycycline hyclate 100 mg capsule 100 mg PO BID Qty: 14 RF: 0 Continued methadone 10 mg Tablet 45 mg PO DAILY RF: 0 Discharge Orders: Discharge Order (Routine); Ordered 03/04/21 Ordered By: Giovanni Treviño Diet: advance to usual diet Activity on Discharge: As tolerated Stand Alone Forms: Patient Portal Discharge page Care Plan Goals: To stay healthy and out of the hospital. Health Concerns: Infection of left Arm Opiate use Plan of Treatment: Finish 7 more days of antibiotics -- Augmentin and Doxycycline Follow up with Methadone provider Assessment: See D/C Summary Discharge Date/Time: 03/04/21 14:10
--- NOTE | 2021-03-04 13:30 | MHC.RECOVRN ---
Met with pt after pt expressed interest in speaking with Recovery Support to CM. Provided pt with recovery resources. Pt declined referrals at this time. Pt informed t/w of desire to discharge, whether medically cleared or not. Provided pt with last dose letter. CM aware pt would like to discharge.
--- NOTE | 2021-03-04 14:26 | PC.NURSE ---
Patient 89 Fredis Guzman became aggressive and wanted to leave the hospital. He then left AMA, patient did not sign out. Both nurse safety deposit supervisor and provider notified, IV removed.
== END 2021-03-04 14:10 | disposition left against medical advice (07) | DRG 383 ==
LOC: HO.ED 04:15 → HO.EDOVER 05:52 → HO.S3 14:30
PROVIDERS: Admitting Provider Internal Medicine; Emergency Provider Student in an Organized Health Care Education/Training Program; Visit Provider Family Medicine
DX: L03.114 Cellulitis of left upper limb (principal); F11.20 Opioid dependence, uncomplicated; F10.139 Alcohol abuse with withdrawal, unspecified; F17.210 Nicotine dependence, cigarettes, uncomplicated; Z71.6 Tobacco abuse counseling; Z20.822 Contact with and (suspected) exposure to COVID-19
CPT/HCPCS: 36415; 73120; 73201; 80048; 80053; 80202; 80307; 81001; 82565; 83605; 85025; 87040; 87147; 87205; 87635; 93005; 96365; 96367; 99218; 99285; J1650; J2270; J2543; J2560; J3370; Q9967

== ENCOUNTER 2021-11-30 02:37 | Emergency (ER) | payer MEDICAID, SELFPAY ==
[2021-11-30 02:55] VITALS: BP 133/77; PULSE 82; RESP 12; TEMP 37.1; O2SAT 96; BMI 23.6
--- NOTE | 2021-11-30 03:32 | ED.GENADULT ---
HPI - General Adult General Chief complaint: Skin/Abscess/Foreign Body Stated complaint: R arm abscess Time Seen by Provider: 11/30/21 03:28 Source: patient Limitations: no limitations History of Present Illness HPI narrative: This is a 46-year-old male who complains of an abscess on his right forearm, after he had injected drugs into this area a few days ago. The patient denies any fever. He denies any nausea or vomiting. He denies any history of diabetes Related Data Home Medications Medication Instructions Recorded Confirmed methadone 10 mg tablet 45 mg PO DAILY 03/02/21 03/02/21 Previous Rx's Medication Instructions Recorded amoxicillin 875 mg-potassium 1 tab PO BID #14 tabs 03/04/21 clavulanate 125 mg tablet (Augmentin) doxycycline hyclate 100 mg capsule 100 mg PO BID #14 caps 03/04/21 sulfamethoxazole 800 1 tab PO BID #14 tabs 11/30/21 mg-trimethoprim 160 mg tablet (Bactrim DS) Allergies Allergy/AdvReac Type Severity Reaction Status Date / Time No Known Allergies Allergy Verified 03/02/21 02:25 Review of Systems Constitutional: Constitutional: Denies chills and Denies fever(s) Cardiovascular: Cardiovascular: Reports no additional cardiovascular complaints Respiratory: Respiratory: Reports no additional respiratory complaints Gastrointestinal: Gastrointestinal: Reports no additional gastrointestinal complaints Integumentary/Breasts: Comments: Abscess right forearm PMFSH Past Medical History Medical History (Updated 11/30/21 @ 04:25 by Emerson Acosta MD) Alcohol abuse Alcohol abuse with withdrawal Cellulitis of left upper extremity Hepatitis C Opiate use Surgical History (Updated 03/02/21 @ 05:57 by Sana Vail MD) H/O hernia repair Social History Social History (Updated 03/02/21 @ 05:58 by Sana Vail MD) Household Members: None Housing: Apartment Do you presently have visiting nurse or other home services: No Alcohol intake: current Patient Tobacco Use Status: Current everyday Tobacco user Tobacco use type: Cigarette Cigarette Packs Per Day: 1.5 e-Cigarette/Vaping Use: Never Used Second Hand Smoke Exposure: Yes Substance Use Type: Crack/Cocaine and Marijuana Advance Directives: Yes Advance Directives on File: Yes Advance Directives Date on File: 03/02/21 service: No Current occupational status: unemployed Physical Exam ED Vital Signs: Vital Signs - 24 hr 11/30/21 02:55 Temperature 98.8 F Pulse Rate 82 Respiratory Rate 12 Blood Pressure 133/77 Pulse Oximetry 96 Oxygen Delivery Method Room Air BMI result Body Mass Index 23.6 Const Other: Patient initially asleep, lying on his side. Patient is somewhat disheveled appearing. Upon examination, after the patient wakes up, he is rather twitchy upon palpation and almost any spot on his body, including just auscultating his heart and lungs General: no acute distress Orientation/consciousness: patient oriented x3 HENMT Head: Yes normal to inspection General nose exam: Normal external nose present Mouth: moist mucous membranes Throat: Yes posterior oropharynx normal, Yes tonsils normal and Yes uvula midline Eyes Eyelids: Yes eyelids normal Conjunctivae: conjunctivae normal Pupils: Equal, round and reactive pupils present Neck Neck: Yes supple Resp Effort & Inspection: normal respiratory effort Auscultation: clear to auscultation bilaterally Cardio Rate: regular rate Rhythm: regular rhythm Heart sounds: S1 normal heart sound present, S2 normal heart sound present, no gallops, no murmurs and no rubs GI Inspection: No distended Palpation (GI): Soft to palpation and nontender Auscultation: normal bowel sounds Skin Other: Right lower forearm with an approximately 1 in in diameter area of focal fluctuance and erythema, pointing of pus consistent with abscess. Approximately 3 in of localized erythema around central fluctuance General skin exam: other (Warm and dry) Neuro General: patient oriented x3 and CN's II-XI intact bilaterally Cranial nerves: Yes Equal, round and reactive pupils present Extrem General: Yes no pedal edema Psych Affect: normal affect Attitude: cooperative Procedures Abscess I/D Site: upper extremity Side (if applicable): right Sedation/analgesia: none Local Anesthetic: lidocaine 2% and with epi Amount of anesthesia used (mL): 2 Technique: incised with blade Amount of fluid expressed (mL): 4 Sent for culture/gram staining?: Yes Irrigation: Yes Packing used?: none Medical Decision Making MDM Narrative Medical decision making narrative: Patient with an abscess to his right forearm after shooting drugs. Copious pus drained. Patient is being started on Bactrim double strength b.i.d.. Discharge Plan Discharge Clinical Impression: Abscess of skin or subcutaneous tissue, Cellulitis Patient Disposition: Home, Self-Care Instructions: Abscess (ED), Incision and Drainage (ED) Additional Instructions: Take the antibiotics as prescribed. Use ibuprofen or acetaminophen (Tylenol) for pain. Soak the wound area twice a day for 10 minutes or more motor, or wash it off in the shower, allowing the water to spray into the wound, and gently try to milk out any pus which may have formed. Return for any new or worsened symptoms Prescriptions: New sulfamethoxazole-trimethoprim [Bactrim DS] 800-160 mg tablet 1 tab PO BID Qty: 14 0RF No Action methadone 10 mg Tablet 45 mg PO DAILY amoxicillin-pot clavulanate [Augmentin] 875-125 mg tablet 1 tab PO BID Qty: 14 0RF doxycycline hyclate 100 mg capsule 100 mg PO BID Qty: 14 0RF
[2021-11-30] MEDS: Sulfamethox/Trimeth 800/160 TABLET 1 TAB PO (04:02)
[2021-11-30] MEDS: Lidocaine HCl 2%/Epi 1:100,000 20 ML VIAL 5 ML INFILTRATI (04:02)
== END 2021-11-30 04:58 | disposition home or self-care (01) ==
PROVIDERS: Emergency Provider Emergency Medicine
DX: L02.413 Cutaneous abscess of right upper limb (principal); L03.113 Cellulitis of right upper limb; E11.9 Type 2 diabetes mellitus without complications; F11.20 Opioid dependence, uncomplicated; F17.210 Nicotine dependence, cigarettes, uncomplicated
CPT/HCPCS: 10060; 87071; 87077; 87186; 87205; 99283; 99284

== ENCOUNTER 2024-03-14 14:46 | Inpatient (IN) | payer OTHER, SELFPAY ==
--- NOTE | 2024-03-14 15:11 | ED.PSYCH ---
HPI - Psych General Chief Complaint: ETOH/Substance Use Stated Complaint: OVERDOSE Source: patient and EMS Mode of arrival: EMS Limitations: no limitations History of Present Illness ED Provider: Dr. Brina Nielson HPI Narrative: Patient comes in the emergency room complaining of suicidal ideation. Patient states that he is homeless, feels depressed. Patient attempted suicide by overdose with cocaine and heroin IV. Patient denies HI. According to EMS, patient was found out in the street, EMS found him semi unresponsive, given Narcan, woke up immediately. Related Data Home Medications ?Medication ?Instructions ?Recorded ?Confirmed No Known Home Meds 03/14/24 03/14/24 Allergies Allergy/AdvReac Type Severity Reaction Status Date / Time No Known Allergies Allergy Verified 03/14/24 15:16 Review of Systems Review of Systems: Constitutional : No Weight loss, No Fever, No Chills, No Night Sweats, No Fatigue, No Malaise ENT/Mouth : No Hearing loss, No Ear Pain, No Nasal Congestion, No Sinus Pain, No Hoarseness, No sore throat, No Rhinorrhea, No Swallowing Difficulty Eyes: No Eye Pain, No Swelling, No Redness, No Foreign Body, No Discharge, No Vision Changes Cardiovascular : No Chest Pain, No SOB, No Dyspnea on Exertion, No Orthopnea, No Edema, No Palpitations Respiratory : No Cough, No Sputum, No Wheezing, No Smoke Exposure, No Dyspnea Gastrointestinal : No Nausea, No Vomiting, No Diarrhea, No Constipation, No abdominal Pain, No Hematochezia, No Melena Genitourinary : no irregular bleeding, No Dysuria, No Urinary Frequency, No Hematuria, No Urinary Incontinence, No Urgency, No Flank Pain, No Urinary Flow Changes, No Hesitancy Musculoskeletal : No joint pain, No Myalgias, No Joint Swelling Skin : No Skin Lesions, No rash Neuro : No Weakness, No Numbness, No Paresthesias, No Loss of Consciousness, No Dizziness, No Headache Psych : Complaining of anxiety, depression, polysubstance use, suicidal ideation with no HI Heme/Lymph: No Bruising, No Bleeding,No Lymphadenopathy Endocrine : No Polyuria, No Polydipsia, No Temperature Intolerance PMFSH Past Medical History Medical History Alcohol abuse with withdrawal Alcohol abuse Hepatitis C Cellulitis of left upper extremity Opiate use Surgical History (Updated 03/02/21 @ 05:57 by Sana Vail MD) H/O hernia repair Social History Social History (Updated 03/02/21 @ 05:58 by Sana Vail MD) Household Members: None Housing: Apartment Do you presently have visiting nurse or other home services: No Alcohol intake: current Patient Tobacco Use Status: Current everyday Tobacco user Tobacco use type: Cigarette Cigarette Packs Per Day: 1.5 e-Cigarette/Vaping Use: Never Used Second Hand Smoke Exposure: Yes Use of substances other than those prescribed or required for medical reasons: Yes Substance Use Type: Crack/Cocaine and Marijuana Advance Directives: Yes Advance Directives on File: Yes Advance Directives Date on File: 03/02/21 service: No Current occupational status: unemployed Physical Exam Vital Signs: Vital Signs: Last Vital Signs Temp 98.2 F 03/14/24 15:59 Pulse 99 03/14/24 15:14 Resp 20 03/14/24 15:14 BP 94/58 L 03/14/24 15:14 Pulse Ox 99 03/14/24 15:14 O2 Del Method Room Air 03/14/24 15:14 BMI result Body Mass Index 21.5 Const: Other: Appearance: Alert. Oriented X3. No acute distress. Eyes: Pupils equal, round and reactive to light. ENT: Pharynx normal. Neck: Normal inspection. Neck supple. No lymph nodes noted. No crepitus CVS: Normal heart rate and rhythm. Pulses normal. Normal S1 and S2 Respiratory: No respiratory distress. Breath sounds normal. No Wheezing. No rales Abdomen: Soft and nontender. No rigidity. No distention. Skin: Skin warm and dry. Normal skin color. Normal skin turgor. patient is bilateral upper extremities look a bit erythematous, patient able to flex and extend all fingers hands and wrist with no pain. No restriction in range of motion Extremities: No lower extremity edema. No Lacerations. No Rash Neuro: Oriented X 3. No motor deficit. No sensory deficit. Moving all extremities. No slurred speech. CN 2 through 12 grossly intact Psych: calm, cooperative, normal affect Course Course Course Narrative: -patient's labs pending - care team consult pending - patient is on a Section 12 - physician observation started at 15:10 Medical Decision Making Medical Decision Making MDM Narrative: my interpretation of labs: Patient's white blood cell count 22.5 which is new for the patient. Source of infection likely to be upper extremities which are a bit erythematous. No fever no chills. Patient denies any chest pain or shortness of breath, no URI or UTI symptoms. Urine toxicology positive for opiates, buprenorphine, methadone, fentanyl, benzodiazepines and cocaine - patient is started on antibiotics, cephalexin and doxycycline - patient has no fever, no hypotension, no tachycardia, sepsis not suspected. - the care team evaluated the patient, patient will go to a dual diagnosis facility. Patient remains on a Section 12, patient agreeable with plan Differential Diagnosis Differential Diagnoses: The differential diagnosis associated with the presentation includes ( anxiety, depression, suicidal ideation, polysubstance abuse, alcohol dependence /alcohol abuse) Admission/Observation Consideration of admission/observation: Escalation of care including admission/observation considered ( patient is on a Section 12 waiting to be seen by the care team.) Lab Data MDM Lab Attestation statement: I reviewed the patient's lab results. 03/14/24 17:17 03/14/24 17:17 Labs: Lab Results 03/14/24 03/14/24 Range/Units 16:37 17:17 WBC 22.5 H (4.8-10.8) X10*3/uL RBC 3.70 L (4.60-5.80) X10*6/uL Hgb 10.8 L (14.0-18.0) g/dl Hct 31.9 L (42.0-52.0) % MCV 86.2 (80.0-98.0) fL MCH 29.2 (27.0-33.0) pg MCHC 33.9 (31.0-36.0) g/dl RDW 13.1 (11.0-16.0) % Plt Count 224 D (160-400) X10*3/uL MPV 10.5 (9.4-12.4) fL Immature Gran % (Auto) 0.9 H (0.0-0.4) % Neut % (Auto) 88.4 H (45-73) % Lymph % (Auto) 5.5 L (20-40) % Parmer % (Auto) 4.8 (2-11) % Eos % (Auto) 0.0 (0-4) % Baso % (Auto) 0.4 (0-2) % Lymph # (Auto) 1.2 (1.2-4.9) X10*3/uL Parmer # (Auto) 1.1 (0.1-1.2) X10*3/uL Eos # (Auto) 0.0 (0.0-0.4) X10*3/uL Baso # (Auto) 0.1 (0.0-0.2) X10*3/uL Abs Immat Gran (auto) 0.20 H (0.00-0.03) X10*3/uL Absolute Neuts (auto) 19.9 H (2.0-8.3) x10*3/uL Absolute Nucleated RBC 0.000 (0.0-0.012) X10*3/uL Nucleated RBC % (auto) 0.0 (0.0-0.2) /100WBC Sodium 137 (135-145) mmol/L Potassium 4.1 (3.3-5.1) mmol/L Chloride 104 (96-108) mmol/L Carbon Dioxide 25 (22-29) mmol/L Anion Gap 12 (12-20) BUN 20 H (9-16) mg/dL Creatinine 0.82 (0.5-1.4) mg/dL Estim Creat Clear Calc 103.7 Estimated GFR > 60 Random Glucose 76 (60-115) mg/dL Calcium 8.2 L (8.4-10.2) mg/dL Magnesium 2.0 (1.6-2.6) mg/dL Total Bilirubin 0.5 (0.0-1.0) mg/dL Direct Bilirubin 0.3 (0.0-0.5) mg/dL AST 63 H (5-37) U/L ALT 36 (0-40) U/L Alkaline Phosphatase 110 (39-117) U/L Total Protein 6.4 L (6.5-8.0) g/dL Albumin 3.2 L (3.5-5.0) g/dL Urine Color Yellow Urine Appearance Clear Urine pH 5.5 (5.0-9.0) Ur Specific [place] 1.015 (1.005-1.025) Urine Protein Trace (Neg-Trace) mg/dL Urine Glucose (UA) Negative (Negative) mg/dL Urine Ketones Negative (Negative) mg/dL Urine Blood Negative (Negative) Urine Nitrite Negative (Negative) Ur Leukocyte Esterase Negative (Negative) Urine Opiates Screen POSITIVE H (Not Detect) Ur Buprenorphine Scrn Positive H (Not Detect) ng/mL Ur Oxycodone Screen Not Detected (Not Detect) ng/mL Urine Methadone Screen Positive H (Not Detect) ng/mL Urine Fentanyl Screen POSITIVE H (Not Detect) Ur Barbiturates Screen Not Detected (Not Detect) Ur Phencyclidine Scrn Not Detected (Not Detect) Ur Amphetamines Screen Not Detected (Not Detect) U Benzodiazepines Scrn POSITIVE H (Not Detect) Urine Cocaine Screen POSITIVE H (Not Detect) U Marijuana (THC) Screen Not Detected (Not Detect) Ethyl Alcohol < 10 mg/dL Discharge Plan Discharge Clinical Impression: Polysubstance abuse, Suicide ideation, Cellulitis Patient Disposition: Still a Patient Prescriptions: No Action No Known Home Meds Print Language: Luxembourgish
[2024-03-14 15:14] VITALS: BP 94/58; PULSE 99; RESP 20; O2SAT 99; BMI 21.5
--- NOTE | 2024-03-14 15:57 | PC.NURSE ---
belongings in [facility], belongings were secured by security upon arrival to Main ED
[2024-03-14 15:59] VITALS: TEMP 36.8
[2024-03-14 16:47] LABS: Appearance Urine Clear; Color Urine Yellow; Glucose Urine UA Negative (Negative); Leukocyte Esterase Urine Negative (Negative); Nitrite Urine Negative (Negative); PH 5.5 (5.0-9.0); Specific Gravity - Urine 1.015 (1.005-1.025); Urine Blood Negative (Negative); Urine Ketones Negative (Negative); Urine Protein Trace mg/dL (Neg-Trace)
[2024-03-14 16:57] LABS: Amphetamine Screen Urine Not Detected (Not Detect); Barbiturates, Urine Not Detected (Not Detect); Benzodiazepines Screen Urine POSITIVE (Not Detect); Buprenorphine Scr Positive (Not Detect); Cannabinoid Screen Urine Not Detected (Not Detect); Cocaine Screen Urine POSITIVE (Not Detect); Fentanyl, urine POSITIVE (Not Detect); Methadone Screen, Urine Positive (Not Detect); Opiate Screen Urine POSITIVE (Not Detect); Oxycodone Screen Urine Not Detected (Not Detect); Phencyclidine Screen Urine Not Detected (Not Detect)
--- NOTE | 2024-03-14 17:28 | PC.NURSE ---
pt hands are swollen and red. pt has no open area or sores on his body. he has no complaints. he reports his hands have been red and swollen for years. 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
--- NOTE | 2024-03-14 17:54 | PC.NURSE ---
pt reports that he has been off his meds for awhile, he did not take them at the recent detox that he was at. No meds added to med rec at this time.
--- NOTE | 2024-03-14 18:18 | PC.NURSE ---
called lab after not seeing labs resulting after about an hour. lab told this nurse that the tube was down. Was not aware. will wait for them to fix tube and see if any labs are viable before recollecting and sticking pt again
[2024-03-14 20:01] LABS: MANUAL DIFF FLAG NO
[2024-03-14 20:03] LABS: Basophils Absolute Auto 0.1 X10*3/uL (0.0-0.2); Basophils Percent Auto 0.4 % (0-2); Hematocrit 31.9 % (42.0-52.0); Hemoglobin 10.8 g/dl (14.0-18.0); Imm Gran Pct Auto 0.9 % (0.0-0.4); Lymphocytes Absolute Auto 1.2 X10*3/uL (1.2-4.9); Lymphocytes Percent Auto 5.5 % (20-40); Mean Corpuscular HGB Conc 33.9 g/dl (31.0-36.0); Mean Corpuscular Hemoglobin 29.2 pg (27.0-33.0); Mean Corpuscular Volume 86.2 fL (80.0-98.0); Mean Platelet Volume 10.5 fL (9.4-12.4); Monocytes Absolute Auto 1.1 X10*3/uL (0.1-1.2); Monocytes Percent Auto 4.8 % (2-11); Neutrophils Absolute Auto 19.9 x10*3/uL (2.0-8.3); Neutrophils Percent Auto 88.4 % (45-73); Platelet Count 224 X10*3/uL (160-400); Red Cell Distribution Width 13.1 % (11.0-16.0); White Blood Count 22.5 X10*3/uL (4.8-10.8)
[2024-03-14 20:29] LABS: Alanine Aminotransferase 36 U/L (0-40); Albumin Level 3.2 g/dL (3.5-5.0); Alkaline Phosphatase 110 U/L (39-117); Anion Gap 12 (12-20); Aspartate Amino Transferase 63 U/L (5-37); Bilirubin Direct 0.3 mg/dL (0.0-0.5); Bilirubin Total 0.5 mg/dL (0.0-1.0); Blood Urea Nitrogen 20 mg/dL (9-16); Calcium 8.2 mg/dL (8.4-10.2); Carbon Dioxide 25 mmol/L (22-29); Chloride 104 mmol/L (96-108); Creatinine Clr Calc Pharmacy 103.7; Estimated Glomerular Filt Rate > 60; Ethanol < 10 mg/dL; Glucose Random 76 mg/dL (60-115); Potassium 4.1 mmol/L (3.3-5.1); Sodium 137 mmol/L (135-145); Total Protein 6.4 g/dL (6.5-8.0)
[2024-03-14] MEDS: Doxycycline Monohydrate 100 MG CAPSULE PO (21:26)
[2024-03-14] MEDS: cephALEXin 500 MG CAPSULE PO (21:27)
[2024-03-14 21:53] LABS: COVID-19 Test Negative (Negative); IDNOW Serial# 08D9AD1C; IDNOW Serial# 152EDE1D; Influenza A Negative (Negative); Influenza B2 Negative (Negative)
--- NOTE | 2024-03-14 21:55 | MHC.CARE ---
Addenda to CARE Team Assessment 03/14/24 at 20:25- Utox came back positive for opiates, buprenorphine, methadone, fentanyl, benzodiazepines, and cocaine. CARE Team Assessment is not showing up on Face Sheet but is reflected under Patient Care.
--- NOTE | 2024-03-14 22:17 | MHC.CARE ---
Accidentally cancelled Care Team assessment that was completed 03/14 at 20:25 for patient. Assessment was sent to Guillermina Ramírez. Access Assessment through Patient Care.
[2024-03-14 23:42] VITALS: BP 103/54; PULSE 79; RESP 16; TEMP 36.8; O2SAT 95
--- NOTE | 2024-03-15 | ECG_ITS ---
Test Reason : check prolong qt Blood Pressure : / mmHG Vent. Rate : 075 BPM Atrial Rate : 075 BPM P-R Int : 154 ms QRS Dur : 104 ms QT Int : 388 ms P-R-T Axes : 048 042 037 degrees QTc Int : 433 ms Normal sinus rhythm Incomplete right bundle branch block Borderline ECG When compared with ECG of 02-MAR-2021 08:58, Incomplete right bundle branch block has replaced Non-specific intra-ventricular conduction delay Referred By: Brina Nielson Electronically Signed By:REBEKAH SIEGEL
--- NOTE | 2024-03-15 07:58 | PC.NURSE ---
Assumed care of patient at 0645, patient appears to be in no apparent distress this am, calm and cooperative, ate breakfast, now resting in bed watching TV. Continue plan of care for inpatient bedsearch
[2024-03-15] MEDS: Doxycycline Monohydrate 100 MG CAPSULE PO ×2 (08:27→21:04)
[2024-03-15] MEDS: cephALEXin 500 MG CAPSULE PO ×2 (08:27→21:04)
--- NOTE | 2024-03-15 09:55 | PHA.MEDREC ---
Pharmacy Consult ? Medication Reconciliation Pharmacy has completed the medication reconciliation.Pharmacy has reviewed med rec done by nursing.
--- NOTE | 2024-03-15 10:46 | MHC.CARE ---
Patient accepted to [facility] [address] [place] [address] Noe
--- NOTE | 2024-03-15 13:15 | MHC.CARE ---
admission to [facility] was cancelled by [facility] tutor coordinator Tony. Facility aware.
[2024-03-15 14:00] VITALS: BP 142/85; PULSE 74; RESP 16; TEMP 36.9; O2SAT 98
--- NOTE | 2024-03-15 14:31 | PC.NURSE ---
Patient continues to rest comfortably, making needs known as needed, calm and cooperative, no apparent distress at this time
--- NOTE | 2024-03-15 17:02 | PC.NURSE ---
Patient refusing lab draw at this time, plan for re-attempt when patient is calmer
--- NOTE | 2024-03-15 17:55 | PC.NURSE ---
Patient responded go fuck yourself when asked if additional bloodwork could be taken
[2024-03-15 20:35] VITALS: RESP 16
[2024-03-15] MEDS: methADONE HCl 20 MG/2 ML ORAL.CONC 10 MG PO (21:04)
[2024-03-15 21:22] VITALS: BMI 22.2
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
[2024-03-16 08:00] VITALS: RESP 18
[2024-03-16] MEDS: methADONE HCl 20 MG/2 ML ORAL.CONC 10 MG PO (08:07)
[2024-03-16] MEDS: Folic Acid 1 MG TABLET PO (08:26)
[2024-03-16] MEDS: Doxycycline Monohydrate 100 MG CAPSULE PO ×2 (08:26→20:58)
[2024-03-16] MEDS: cephALEXin 500 MG CAPSULE PO ×2 (08:26→20:58)
[2024-03-16] MEDS: Thiamine HCL 100 MG TABLET PO (08:26)
--- NOTE | 2024-03-16 08:30 | PC.NURSE ---
Addendum entered by Marita Yang RN 03/16/24 11:24: Provider Ranjan aware. Original Note: Pt refused vitals and labs. Pt stated I'm fucking fine, just get me a bag of dope. RN attempted to offer pt medication to help him feel more relaxed but he declined and said I don't need anything, it's not your problem.
--- NOTE | 2024-03-16 09:17 | P.HPPS_ITS ---
HPI Date of Service: 03/16/24 Chief Complaint: SI depression Opiate Dep/Cellulitis Sources of Information: patient interviewed, chart reviewed and crisis/core team assessment reviewed HPI Narrative: Patient is a 49-year-old male with history MDD, PTSD, opiate use disorder, cocaine use disorder, alcohol use disorder who was brought in by ambulance to [facility] secondary to overdose on opiate/cocaine and suicidal ideation. Per crisis report, patient was found unresponsive and administered Narcan by EMS. On arrival to ER patient reported depression suicidal ideation. Patient has a history of IV drug use and polysubstance use. He reports passive suicidal ideation; patient stated, if I , I . denies HI VH/AH. He reports having lost 45 lb over the last 6 months due to poor appetite; he also reports poor sleep. history of detox admissions and difficulty remaining sober. Patient reports he was working with a social work program coordinator at [facility] to try to get into a dual inpatient program. He reports he has no MAT or outpatient psychiatric providers. history of cellulitis secondary to IV drug use and substance use. Patient reports he has not been taking medications since he left detox. Patient reports history of suicide attempts via overdose. Utox positive for cocaine, benzodiazepines, fentanyl, buprenorphine, and opiates. During admission assessment, patient presents alert and oriented x3. Irritable. Guarded. Declining to participate in admission interview. Patient stated, there is no point in talking to you. I'm just going to leave here and buy needles and shoot up. Nothing you say to me or anything that I say to you is significant. I would not tell you if I was suicidal . When T/W attempted to ask patient assessment questions; patient would stare at T/W and not respond to questions. Observed out in the milieu but keeping to self. Past Psychiatric History: History of inpatient psychiatric hospitalizations. He reports last admission being 6-7 years ago. History of incarceration. History of detox admissions. History of receiving methadone, Suboxone and Sublocade. He found methadone most helpful. He reports stopping Suboxone about 2 years ago. Medical Evaluation Reviewed: Yes [facility] Medical History Alcohol abuse with withdrawal Alcohol abuse Hepatitis C Cellulitis of left upper extremity Opiate use Surgical History (Updated 03/02/21 @ 05:57 by Sana Vail MD) H/O hernia repair Family History: Father committed suicide when patient was 11 years old. Social History: Homeless. Single. Substance History: Utox positive for cocaine, benzodiazepines, fentanyl, buprenorphine, and opiates. Trauma History: Yes Diagnostics Vital Signs (24Hr): Vital Signs - 24 hr 03/15/24 14:00 03/15/24 20:35 Temperature 98.5 F Pulse Rate 74 Respiratory Rate 16 16 Blood Pressure 142/85 H Pulse Oximetry 98 Oxygen Delivery Method Room Air BMI result Body Mass Index 22.2 Labs 03/14/24 17:17 03/14/24 17:17 Labs: Laboratory Results - last 48 hr 03/14/24 03/14/24 03/14/24 16:37 17:17 21:14 WBC 22.5 H RBC 3.70 L Hgb 10.8 L Hct 31.9 L MCV 86.2 MCH 29.2 MCHC 33.9 RDW 13.1 Plt Count 224 D MPV 10.5 Immature Gran % (Auto) 0.9 H Neut % (Auto) 88.4 H Lymph % (Auto) 5.5 L [place] % (Auto) 4.8 Eos % (Auto) 0.0 Baso % (Auto) 0.4 Lymph # (Auto) 1.2 [place] # (Auto) 1.1 Eos # (Auto) 0.0 Baso # (Auto) 0.1 Abs Immat Gran (auto) 0.20 H Absolute Neuts (auto) 19.9 H Absolute Nucleated RBC 0.000 Nucleated RBC % (auto) 0.0 Sodium 137 Potassium 4.1 Chloride 104 Carbon Dioxide 25 Anion Gap 12 BUN 20 H Creatinine 0.82 Estim Creat Clear Calc 103.7 Estimated GFR > 60 Random Glucose 76 Calcium 8.2 L Magnesium 2.0 Total Bilirubin 0.5 Direct Bilirubin 0.3 AST 63 H ALT 36 Alkaline Phosphatase 110 Total Protein 6.4 L Albumin 3.2 L Urine Color Yellow Urine Appearance Clear Urine pH 5.5 Ur Specific [place] 1.015 Urine Protein Trace Urine Glucose (UA) Negative Urine Ketones Negative Urine Blood Negative Urine Nitrite Negative Ur Leukocyte Esterase Negative Urine Opiates Screen POSITIVE H Ur Buprenorphine Scrn Positive H Ur Oxycodone Screen Not Detected Urine Methadone Screen Positive H Urine Fentanyl Screen POSITIVE H Ur Barbiturates Screen Not Detected Ur Phencyclidine Scrn Not Detected Ur Amphetamines Screen Not Detected U Benzodiazepines Scrn POSITIVE H Urine Cocaine Screen POSITIVE H U Marijuana (THC) Screen Not Detected Ethyl Alcohol < 10 COVID-19 (INGE) Negative COVID-19 Clin Com See Note Influenza Type A (AGUILAR) Negative Influenza Type B (AGUILAR) Negative Influenza A & B Note See Note Meds/Allergies Allergies Allergies Allergy/AdvReac Type Severity Reaction Status Date / Time No Known Allergies Allergy Verified 03/14/24 15:16 Mental Status Exam Mental Status Exam Narrative: Pt is alert and oriented; behavior is guarded; dressed in hospital attire; eye contact appropriate; Speech is normal rate, volume and not pressured; irritable, declining to answer assessment questions. Assessment & Plan Assessment & Plan (1) MDD (major depressive disorder), recurrent episode, severe: Status: Acute Code(s): F33.2 - Major depressive disorder, recurrent severe without psychotic features (2) PTSD (post-traumatic stress disorder): Status: Acute Code(s): F43.10 - Post-traumatic stress disorder, unspecified (3) Cocaine use disorder: Status: Acute Code(s): F14.10 - Cocaine abuse, uncomplicated (4) Opioid use disorder: Status: Acute Code(s): F11.90 - Opioid use, unspecified, uncomplicated (5) Polysubstance abuse: Status: Acute Code(s): F19.10 - Other psychoactive substance abuse, uncomplicated Plan Patient is a 49-year-old male with history MDD, PTSD, opiate use disorder, cocaine use disorder, alcohol use disorder who was brought in by ambulance to [facility] secondary to overdose on opiate/cocaine and suicidal ideation. Plan: CV 15 minute safety checks Addiction medicine consult Encourage groups Build rapport Referral to outpatient psychiatric providers Discharge planning Patient educated on: diagnosis and medication risk/benefits Reason for continued inpatient stay Substantial Risk for: harm to self and med/psych decompensation Statement Statement: I have reviewed the history and physical and performed a pertinent examination on my patient. No changes have occurred unless specified. If the History and Physical was not performed prior to admission, the Hospitalist's service will be consulted for completing the admission physical. Time Spent With Patient Time: Total time managing care of this patient today _60___ minutes.
--- NOTE | 2024-03-16 09:47 | PM.EVENT ---
Event Note Date of Service: 03/16/24 Event Note: Addiction consult placed for patient with OUD admitted to unit Chart reviewed +UDS methadone, bup, fentanyl, cocaine Previous admission to [facility] secondary to IVDU related soft tissue infection Methadone 10mg TID ordered by admitting provider 2 doses administered Documentation showing patient quite irritable and declining to engage in any discussion Per RN, declining PRN medications when offered Plan: -methadone 30mg X1 -methadone 10mg QD PRN -continue to offer PRNs -COWS -inquire if patient is currently or has recently been engaged in treatment with [facility] (methadone) -will follow up in AM Time Spent With Patient Time: Total time managing care of this patient today ____ minutes.
[2024-03-16] MEDS: methADONE HCl 20 MG/2 ML ORAL.CONC 30 MG PO (10:55)
--- NOTE | 2024-03-16 10:58 | PC.NURSE ---
Methadone 30mg given outside of parameters d/t pt meeting with the provider.
[2024-03-16 12:00] VITALS: RESP 18
[2024-03-16 16:00] VITALS: RESP 18
[2024-03-16 20:00] VITALS: BP 149/87; PULSE 74; RESP 16; TEMP 36.8; O2SAT 98
[2024-03-17 08:00] VITALS: BP 142/101; PULSE 78; RESP 15; TEMP 37.4; O2SAT 96
[2024-03-17] MEDS: methADONE HCl 20 MG/2 ML ORAL.CONC 30 MG PO (08:15)
[2024-03-17 08:34] VITALS: BP 142/101; PULSE 74; RESP 15; TEMP 37.4; O2SAT 98
[2024-03-17] MEDS: Thiamine HCL 100 MG TABLET PO (08:36)
[2024-03-17] MEDS: Folic Acid 1 MG TABLET PO (08:36)
[2024-03-17] MEDS: Doxycycline Monohydrate 100 MG CAPSULE PO (08:36)
[2024-03-17] MEDS: cephALEXin 500 MG CAPSULE PO (08:36)
--- NOTE | 2024-03-17 09:02 | HO.ADDICT_ITS ---
History of Present Illness Date of Service: 03/17/2024 Chief Complaint: SI depression Opiate Dep/Cellulitis Reason for Consult: OUD-methadone titration Sources of Information: patient interviewed and chart reviewed HPI Narrative: Patient currently admitted to [facility] with suicidal ideation Over the weekend started on methadone for OUD yesterday received total of 40mg methadone Seen on M3 in common area, awake, alert, reports not feeling well. Per RN he just received methadone dose. He states he had previously been on methadone, though unclear through which OTP, or how recent. Most recent dose as 50mg and he states this is because he was in a program that required he taper his dose? Prior to this he states he had been on methadone 100mg daily when he was a patient at [facility]. He would like to continue titrating dose, and continue treatment in the community. Remainder of substance use history to be obtained by RN as patient was feeling unwell Past Psychiatric History: History of inpatient psychiatric hospitalizations. He reports last admission being 6-7 years ago. History of incarceration. History of detox admissions. History of receiving methadone, Suboxone and Sublocade. He found methadone most helpful. He reports stopping Suboxone about 2 years ago. Review of Systems Constitutional: Reports as per HPI, Reports body ache(s), Reports difficulty sleeping, Reports lethargy and Reports malaise Diagnostics Vital Signs (24Hr): Vital Signs - 24 hr 03/16/24 12:00 03/16/24 16:00 03/16/24 20:00 Temperature 98.3 F Pulse Rate 74 Respiratory Rate 18 18 16 Blood Pressure 149/87 H Pulse Oximetry 98 Oxygen Delivery Method Room Air 03/17/24 08:34 Temperature 99.3 F Pulse Rate 74 Respiratory Rate 15 Blood Pressure 142/101 H Pulse Oximetry 98 Oxygen Delivery Method Room Air BMI result Body Mass Index 22.2 Labs 03/14/24 17:17 03/14/24 17:17 Mental Status Exam Mental Status Exam Patient Appearance: Disheveled Level of Consciousness: Awake and Appropriate Patient Behavior: Guarded Mood Description: Blunted Affect Description: Blunted Judgement: Fair Medications Medications Current Medications Acetaminophen (Acetaminophen 325 Mg Tablet) 650 mg PO Q6H PRN PRN Reason: Headache/Pain Mild Scale (1-3) Al Hydroxide/Mg Hydroxide (Magnesium Hydrox/Alum Hydrox 30 Ml Oral.Susp) 30 ml PO Q6H PRN PRN Reason: Heartburn/Nausea Cephalexin HCl (Cephalexin 500 Mg Capsule) 500 mg PO BID REPLACED BY [facility] Last Admin: 03/17/24 08:36 Dose: 500 mg Clonidine HCl (Clonidine Hcl 0.1 Mg Tablet) 0.1 mg PO TID PRN; Protocol PRN Reason: anxiety/restlessness Doxycycline Monohydrate (Doxycycline Monohydrate 100 Mg Capsule) 100 mg PO BID REPLACED BY [facility] Last Admin: 03/17/24 08:36 Dose: 100 mg Folic Acid (Folic Acid 1 Mg Tablet) 1 mg PO DAILY REPLACED BY [facility] Last Admin: 03/17/24 08:36 Dose: 1 mg Hydroxyzine HCl (Hydroxyzine Hcl 25 Mg Tablet) 25 mg PO Q6H PRN PRN Reason: Anxiety Magnesium Hydroxide (Milk Of Magnesia 30 Ml Oral.Susp) 30 ml PO DAILY PRN PRN Reason: Constipation Nicotine Polacrilex (Nicotine Polacrilex 2 Mg Gum) 4 mg BUCCAL Q2H PRN PRN Reason: Nicotine Cravings Olanzapine (Olanzapine 5 Mg Tablet) 5 mg PO BID PRN PRN Reason: agitation Ondansetron HCl (Ondansetron Odt 8 Mg Tab.Rapdis) 8 mg TRANSLINGU Q12H PRN PRN Reason: Nausea and Vomiting Thiamine HCl (Thiamine Hcl 100 Mg Tablet) 100 mg PO DAILY REPLACED BY [facility] Last Admin: 03/17/24 08:36 Dose: 100 mg Trazodone HCl (Trazodone Hcl 50 Mg Tablet) 50 mg PO BEDTIME MRX1 PRN PRN Reason: Insomnia Allergies Allergies Allergy/AdvReac Type Severity Reaction Status Date / Time No Known Allergies Allergy Verified 03/14/24 15:16 Assessment & Plan Assessment & Plan (1) Opioid use disorder: Status: Acute Code(s): F11.90 - Opioid use, unspecified, uncomplicated Assessment and Plan: * additional 15mg methadone today (total 45mg) * tomorrow (03/18) AM 50mg * COWS discontinued * HIV screen ordered--known history of hepatitis C with VL * 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 [facility] Past Medical History Medical History Alcohol abuse with withdrawal Alcohol abuse Hepatitis C Cellulitis of left upper extremity Opiate use Surgical History Surgical History (Updated 03/02/21 @ 05:57 by Sana Vail MD) H/O hernia repair Social History Social History (Updated 03/02/21 @ 05:58 by Sana Vail MD) Household Members: None and Other Housing: Homeless Do you presently have visiting nurse or other home services: No Alcohol intake: current Patient Tobacco Use Status: Tobacco use Unknown Tobacco use type: Cigarette Cigarette Packs Per Day: 1.5 e-Cigarette/Vaping Use: Never Used Patient Interested in Nicotine Replacement: No Second Hand Smoke Exposure: No Use of substances other than those prescribed or required for medical reasons: Yes Substance Use Type: Crack/Cocaine, Heroin, IV Drugs and Opiates Substance Use Frequency: Chronic Longstanding Last Used Substance: Just Prior to Admission Currently Displaying Signs/Symptoms of Drug Intoxication Withdrawal: No Any prior treatment program specific to substance use: Yes (HX OF DETOX PROGRAMS) Have you been hit, kicked, punched, or otherwise hurt by someone within the past year? If so, by whom?: No (HX OF HOMICIDAL BEHAVIOR/ AGGRESSION TOWARD OTHERS) Do you feel safe in your current relationship?: No Current Relationship Is there a partner from a previous relationship who is making you feel unsafe now?: No Are you made to feel afraid or neglected: No Advance Directives: Yes Advance Directives Information Provided: No Advance Directives on File: Yes Advance Directives Date on File: 03/02/21 Healthcare Proxy: No Guardian: No Do you have thoughts of harming others: None Do you have a plan to hurt others: No Plan Recently lost weight without trying: Yes How much weight loss: Unsure Eating poorly because of decreased appetite: Yes Nutrition screen score: 5 Nutrition Risks: Poor intake 0-25% >4 days Poor oral hygiene: No service: No Current occupational status: unemployed Sexual orientation: Unable to collect
[2024-03-17] MEDS: methADONE HCl 20 MG/2 ML ORAL.CONC 15 MG PO (09:07)
[2024-03-17] MEDS: LORazepam 1 MG TABLET 3 MG PO (09:16)
[2024-03-17 10:55] VITALS: BP 167/101
[2024-03-17] MEDS: cloNIDine HCL 0.1 MG TABLET PO ×2 (10:55→15:06)
[2024-03-17 15:06] VITALS: BP 120/74
[2024-03-17] MEDS: buPROPion HCl XL 150 MG TAB.ER.24H PO (15:06)
--- NOTE | 2024-03-17 15:57 | MHC.RECOVRN ---
Met with pt on M3 after methadone initiation. Pt awake, alert, engages in conversation. Pt reports he has been using heroin/fentanyl, 1-2 bundles daily, IV, as well as cocaine, 3/4 gram daily, IV, since discharge from [facility] 10 days ago. Pt reports while he was at [place] his methadone was being tapered, believes he was at 50 mg upon dc. Pt also reports being [facility] [id number] in June 2023 after being there for 5 months. Pt reports while there he was on methadone, 100 mg daily, but did transition to Sublocade and received 2 injections. Unclear if pt continued MOUD after release from penitentiary. Currently, pt wishes to continue methadone titration. Denies questions or concerns for t/w. Discussed with Alisa Stephenson APRN.
[2024-03-17 16:00] VITALS: PULSE 76
[2024-03-17 19:30] VITALS: BP 107/67; PULSE 73; TEMP 37; O2SAT 96
--- NOTE | 2024-03-17 22:36 | HO.PSYCHPN ---
Subjective Subjective Date of Service: 03/17/24 Reason For Visit: SI depression Opiate Dep/Cellulitis Interim History: initially unsteady on his feet, defensive and irritable to be asked if he was OK: well, YOU woke me up! preoccupied with physical aches and pains, which he describes as more or less occurring throughout his body, citing injuries of various times and mechanics as if taking me on a 4 dimensional tour of his person. agreeable to take ASA and ibuprofen for pains. odd ideas about clonidine and wellbutrin, states he does well taking both together twice daily but if he takes clonidine alone he can have a panic attack; somehow the wellbutrin prevents that (one would expect it to be the opposite). ambivalent re engaging in a program. per staff, irritable, guarded, labile. refusing CIWA/COWS questions. no peer interactions. slept all NOC. Mental Status Exam Mental Status Exam Narrative: Pt is alert and oriented; behavior is guarded; dressed in hospital attire; eye contact appropriate; Speech is normal rate, volume and not pressured; irritable. no SI/HI/AVH expressed. Diagnostics Vital Signs (24Hr): Vital Signs - 24 hr 03/17/24 08:00 03/17/24 08:34 03/17/24 10:55 Temperature 99.3 F 99.3 F Pulse Rate 78 74 Respiratory Rate 15 15 Blood Pressure 142/101 H 142/101 H 167/101 H Pulse Oximetry 96 98 Oxygen Delivery Method Room Air Room Air 03/17/24 15:06 03/17/24 19:30 Temperature 98.6 F Pulse Rate 73 Respiratory Rate Blood Pressure 120/74 107/67 Pulse Oximetry 96 Oxygen Delivery Method Room Air BMI result Body Mass Index 22.2 Labs 03/14/24 17:17 03/14/24 17:17 Medications Medications Current Medications Acetaminophen (Acetaminophen 325 Mg Tablet) 650 mg PO Q6H PRN PRN Reason: Headache/Pain Mild Scale (1-3) Al Hydroxide/Mg Hydroxide (Magnesium Hydrox/Alum Hydrox 30 Ml Oral.Susp) 30 ml PO Q6H PRN PRN Reason: Heartburn/Nausea Aspirin (Aspirin Enteric Coated 325 Mg Tablet.Dr) 325 mg PO Q4H PRN PRN Reason: pain (pain scale 0-10) Bupropion HCl (Bupropion Hcl Xl 150 Mg Tab.Er.24h) 150 mg PO DAILY [facility] Cephalexin HCl (Cephalexin 500 Mg Capsule) 500 mg PO BID [facility] Last Admin: 03/17/24 21:42 Dose: Not Given Clonidine HCl (Clonidine Hcl 0.1 Mg Tablet) 0.1 mg PO TID PRN; Protocol PRN Reason: anxiety/restlessness Last Admin: 03/17/24 10:55 Dose: 0.1 mg Clonidine HCl (Clonidine Hcl 0.1 Mg Tablet) 0.1 mg PO BID@0900,1500 [facility]; Protocol Last Admin: 03/17/24 15:06 Dose: 0.1 mg Doxycycline Monohydrate (Doxycycline Monohydrate 100 Mg Capsule) 100 mg PO BID [facility] Last Admin: 03/17/24 21:42 Dose: Not Given Folic Acid (Folic Acid 1 Mg Tablet) 1 mg PO DAILY [facility] Last Admin: 03/17/24 08:36 Dose: 1 mg Hydroxyzine HCl (Hydroxyzine Hcl 25 Mg Tablet) 25 mg PO Q6H PRN PRN Reason: Anxiety Ibuprofen (Ibuprofen 600 Mg Tablet) 600 mg PO Q6H PRN PRN Reason: pain (pain scale 0-10) Lorazepam (Lorazepam 1 Mg Tablet) 1 mg PO Q2H PRN PRN Reason: CIWA 8-11 Lorazepam (Lorazepam 1 Mg Tablet) 2 mg PO Q2H PRN PRN Reason: CIWA 12-15 Lorazepam (Lorazepam 1 Mg Tablet) 3 mg PO Q2H PRN PRN Reason: CIWA > 15, and call Magnesium Hydroxide (Milk Of Magnesia 30 Ml Oral.Susp) 30 ml PO DAILY PRN PRN Reason: Constipation Methadone HCl (Methadone Hcl 20 Mg/2 Ml Oral.Conc) 50 mg PO DAILY@0800 [facility] Nicotine Polacrilex (Nicotine Polacrilex 2 Mg Gum) 4 mg BUCCAL Q2H PRN PRN Reason: Nicotine Cravings Olanzapine (Olanzapine 5 Mg Tablet) 5 mg PO BID PRN PRN Reason: agitation Ondansetron HCl (Ondansetron Odt 8 Mg Tab.Rapdis) 8 mg TRANSLINGU Q12H PRN PRN Reason: Nausea and Vomiting Thiamine HCl (Thiamine Hcl 100 Mg Tablet) 100 mg PO DAILY [facility] Last Admin: 03/17/24 08:36 Dose: 100 mg Trazodone HCl (Trazodone Hcl 50 Mg Tablet) 50 mg PO BEDTIME MRX1 PRN PRN Reason: Insomnia Allergies Allergies Allergy/AdvReac Type Severity Reaction Status Date / Time No Known Allergies Allergy Verified 03/14/24 15:16 Assessment & Plan Assessment & Plan (1) Opioid use disorder: Status: Acute Code(s): F11.90 - Opioid use, unspecified, uncomplicated Assessment and Plan: additional 15mg methadone today (total 45mg) tomorrow (03/18) AM 50mg COWS discontinued HIV screen ordered--known history of hepatitis C with 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 and obtain additional substance use history (2) Cocaine use disorder: Status: Acute Code(s): F14.10 - Cocaine abuse, uncomplicated (3) PTSD (post-traumatic stress disorder): Status: Acute Code(s): F43.10 - Post-traumatic stress disorder, unspecified (4) MDD (major depressive disorder), recurrent episode, severe: Status: Acute Code(s): F33.2 - Major depressive disorder, recurrent severe without psychotic features Plan Patient is a 49-year-old male with history MDD, PTSD, opiate use disorder, cocaine use disorder, alcohol use disorder who was brought in by ambulance [place] [facility] secondary to overdose on opiate/cocaine and suicidal ideation. 03/16: Addiction medicine consult. Encourage groups. Build rapport. Referral to outpatient psychiatric providers. Discharge planning. 03/17: scoring on CIWA. per rajiv, scheduling methadone 50 daily and DC COWS. start clonidine 0.1 BID@0900,1500 and wellbutrin 150 daily x 3 days, then increase to 300. Reason for continued inpatient stay Substantial Risk for: harm to self and inability to function Time Spent With Patient Time: Total time managing care of this patient today _35___ minutes.
[2024-03-18 08:00] VITALS: BP 127/61; PULSE 67; TEMP 36.8; O2SAT 97
[2024-03-18] MEDS: methADONE HCl 20 MG/2 ML ORAL.CONC 50 MG PO (08:06)
[2024-03-18] MEDS: cephALEXin 500 MG CAPSULE PO ×2 (08:23→20:16)
[2024-03-18] MEDS: Folic Acid 1 MG TABLET PO (08:24)
[2024-03-18] MEDS: Thiamine HCL 100 MG TABLET PO (08:24)
[2024-03-18] MEDS: cloNIDine HCL 0.1 MG TABLET PO ×2 (08:24→20:17)
[2024-03-18] MEDS: Doxycycline Monohydrate 100 MG CAPSULE PO ×2 (08:24→20:16)
[2024-03-18] MEDS: buPROPion HCl XL 150 MG TAB.ER.24H PO (08:25)
[2024-03-18] MEDS: LORazepam 1 MG TABLET PO ×2 (12:37→20:17)
[2024-03-18] MEDS: Gabapentin 100 MG CAPSULE PO ×3 (12:37→20:15)
--- NOTE | 2024-03-18 18:17 | HO.PSYCHPN ---
Subjective Subjective Date of Service: 03/18/24 Reason For Visit: SI depression Opiate Dep/Cellulitis Interim History: cooperative and collaborative. does want to continue in methadone clinic. asking for melatonin for sleep. would like to continue at [facility] if possible. informed of ativan taper. per staff, flat, anxious, irritable. +dep/anx/SI. not scoring on CIWA. i'm going to get a pencil and sharpen it, and then what are they going to do? Mental Status Exam Mental Status Exam Narrative: Pt is alert and oriented; behavior is guarded; dressed in hospital attire; eye contact appropriate; Speech is normal rate, volume and not pressured; less irritable. no SI/HI/AVH expressed. Diagnostics Vital Signs (24Hr): Vital Signs - 24 hr 03/17/24 19:30 03/18/24 08:00 Temperature 98.6 F 98.3 F Pulse Rate 73 67 Blood Pressure 107/67 127/61 Pulse Oximetry 96 97 Oxygen Delivery Method Room Air Room Air BMI result Body Mass Index 22.2 Labs 03/14/24 17:17 03/14/24 17:17 Medications Medications Current Medications Acetaminophen (Acetaminophen 325 Mg Tablet) 650 mg PO Q6H PRN PRN Reason: Headache/Pain Mild Scale (1-3) Al Hydroxide/Mg Hydroxide (Magnesium Hydrox/Alum Hydrox 30 Ml Oral.Susp) 30 ml PO Q6H PRN PRN Reason: Heartburn/Nausea Aspirin (Aspirin Enteric Coated 325 Mg Tablet.Dr) 325 mg PO Q4H PRN PRN Reason: pain (pain scale 0-10) Bupropion HCl (Bupropion Hcl Xl 150 Mg Tab.Er.24h) 150 mg PO DAILY [facility] Last Admin: 03/18/24 08:25 Dose: 150 mg Cephalexin HCl (Cephalexin 500 Mg Capsule) 500 mg PO BID [facility] Last Admin: 03/18/24 08:23 Dose: 500 mg Clonidine HCl (Clonidine Hcl 0.1 Mg Tablet) 0.1 mg PO TID PRN; Protocol PRN Reason: anxiety/restlessness Last Admin: 03/17/24 10:55 Dose: 0.1 mg Clonidine HCl (Clonidine Hcl 0.1 Mg Tablet) 0.1 mg PO DAILY [facility]; Protocol Doxycycline Monohydrate (Doxycycline Monohydrate 100 Mg Capsule) 100 mg PO BID [facility] Last Admin: 03/18/24 08:24 Dose: 100 mg Folic Acid (Folic Acid 1 Mg Tablet) 1 mg PO DAILY [facility] Last Admin: 03/18/24 08:24 Dose: 1 mg Gabapentin (Gabapentin 100 Mg Capsule) 100 mg PO TID [facility] Last Admin: 03/18/24 15:34 Dose: 100 mg Hydroxyzine HCl (Hydroxyzine Hcl 25 Mg Tablet) 25 mg PO Q6H PRN PRN Reason: Anxiety Ibuprofen (Ibuprofen 600 Mg Tablet) 600 mg PO Q6H PRN PRN Reason: pain (pain scale 0-10) Lorazepam (Lorazepam 1 Mg Tablet) 1 mg PO BID [facility] Stop: 03/19/24 09:01 Last Admin: 03/18/24 12:37 Dose: 1 mg Magnesium Hydroxide (Milk Of Magnesia 30 Ml Oral.Susp) 30 ml PO DAILY PRN PRN Reason: Constipation Melatonin (Melatonin 3 Mg Tablet) 3 mg PO BEDTIME [facility] Methadone HCl (Methadone Hcl 20 Mg/2 Ml Oral.Conc) 50 mg PO DAILY@0800 [facility] Last Admin: 03/18/24 08:06 Dose: 50 mg Nicotine Polacrilex (Nicotine Polacrilex 2 Mg Gum) 4 mg BUCCAL Q2H PRN PRN Reason: Nicotine Cravings Olanzapine (Olanzapine 5 Mg Tablet) 5 mg PO BID PRN PRN Reason: agitation Ondansetron HCl (Ondansetron Odt 8 Mg Tab.Rapdis) 8 mg TRANSLINGU Q12H PRN PRN Reason: Nausea and Vomiting Thiamine HCl (Thiamine Hcl 100 Mg Tablet) 100 mg PO DAILY [facility] Last Admin: 03/18/24 08:24 Dose: 100 mg Allergies Allergies Allergy/AdvReac Type Severity Reaction Status Date / Time No Known Allergies Allergy Verified 03/14/24 15:16 Assessment & Plan Assessment & Plan (1) Opioid use disorder: Status: Acute Code(s): F11.90 - Opioid use, unspecified, uncomplicated Assessment and Plan: additional 15mg methadone today (total 45mg) tomorrow (03/18) AM 50mg COWS discontinued HIV screen ordered--known history of hepatitis C with VL 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 [place] to overdose on opiate/cocaine and suicidal ideation. 03/16: Addiction medicine consult. Encourage groups. Build rapport. Referral to outpatient psychiatric providers. Discharge planning. 03/17: scoring on CIWA. per rajiv, scheduling methadone 50 daily and DC COWS. start clonidine 0.1 BID@0900,1500 and wellbutrin 150 daily x 3 days, then increase to 300. 03/18: pt would like to F/U at methadone clinic after discharge. start melatonin. continue wellbutrin and clonidine. taper ativan through tomorrow morning. Reason for continued inpatient stay Substantial Risk for: harm to self and rapid decompensation Time Spent With Patient Time: Total time managing care of this patient today _25___ minutes.
[2024-03-18 20:00] VITALS: BP 131/71; PULSE 83; RESP 16; TEMP 37; O2SAT 96
[2024-03-18] MEDS: Melatonin 3 MG TABLET PO (20:16)
[2024-03-18 20:17] VITALS: BP 131/71
[2024-03-19 07:45] VITALS: BP 110/74; PULSE 76; RESP 16; TEMP 36.4; O2SAT 96
[2024-03-19] MEDS: methADONE HCl 20 MG/2 ML ORAL.CONC 50 MG PO (08:00)
[2024-03-19] MEDS: cloNIDine HCL 0.1 MG TABLET PO ×2 (08:02→20:58)
[2024-03-19] MEDS: cephALEXin 500 MG CAPSULE PO ×2 (08:02→20:58)
[2024-03-19] MEDS: Gabapentin 100 MG CAPSULE PO ×3 (08:02→20:58)
[2024-03-19] MEDS: Thiamine HCL 100 MG TABLET PO (08:03)
[2024-03-19] MEDS: LORazepam 1 MG TABLET PO (08:03)
[2024-03-19] MEDS: buPROPion HCl XL 150 MG TAB.ER.24H PO (08:03)
[2024-03-19] MEDS: Doxycycline Monohydrate 100 MG CAPSULE PO ×2 (08:04→20:58)
[2024-03-19] MEDS: Folic Acid 1 MG TABLET PO (08:04)
--- NOTE | 2024-03-19 16:06 | MHC.RECOVRN ---
Addendum entered by Lyubov Veliz 03/20/24 10:14: Pt provided with recovery resources. Original Note: Met with pt to check in after receiving 50 mg methadone this morning. Pt sitting in common area, eyes closed, wakes to voice. Appears slightly sedated. Pt reports back pain is better, however, continues to have mild joint pain. Sleep is poor. Reporting diarrhea but believes it is related to alcohol use/withdrawal. Pt reports 100 mg of methadone is a comfortable dose for him. Would like to increase to 60-80 mg. Pt denies other questions or concerns for t/w. Discussed with Alisa Stephenson APRN.
--- NOTE | 2024-03-19 18:01 | P.PNPSI_ITS ---
Subjective Subjective Date of Service: 03/19/24 Reason For Visit: SI depression Opiate Dep/Cellulitis Interim History: calm, cooperative. poor sleep. asks for DC of melatonin, stating it clearly did not work for him. discussed plan to discharge sunday and his feeling thrown to the wolves, being concerned about homelessness and relapse. interested to speak with addictions team to see if there are any other resources they might have to offer. per staff, brighter, more talkative. attended 1 group. slept 6 hours. Mental Status Exam Mental Status Exam Narrative: Pt is alert and oriented; behavior is less guarded; dressed in hospital attire; eye contact appropriate; Speech is normal rate, volume and not pressured; less irritable. anxious. no SI/HI/AVH expressed. Diagnostics Vital Signs (24Hr): Vital Signs - 24 hr 03/18/24 20:00 03/18/24 20:17 03/19/24 07:45 Temperature 98.6 F 97.6 F Pulse Rate 83 76 Respiratory Rate 16 16 Blood Pressure 131/71 131/71 110/74 Pulse Oximetry 96 96 Oxygen Delivery Method Room Air Room Air BMI result Body Mass Index 22.2 Labs 03/14/24 17:17 03/14/24 17:17 Medications Medications Current Medications Acetaminophen (Acetaminophen 325 Mg Tablet) 650 mg PO Q6H PRN PRN Reason: Headache/Pain Mild Scale (1-3) Al Hydroxide/Mg Hydroxide (Magnesium Hydrox/Alum Hydrox 30 Ml Oral.Susp) 30 ml PO Q6H PRN PRN Reason: Heartburn/Nausea Aspirin (Aspirin Enteric Coated 325 Mg Tablet.) 325 mg PO Q4H PRN PRN Reason: pain (pain scale 0-10) Bupropion HCl (Bupropion Hcl Xl 150 Mg Tab.Er.24h) 150 mg PO DAILY [facility] Last Admin: 03/19/24 08:03 Dose: 150 mg Cephalexin HCl (Cephalexin 500 Mg Capsule) 500 mg PO BID [facility] Last Admin: 03/19/24 08:02 Dose: 500 mg Clonidine HCl (Clonidine Hcl 0.1 Mg Tablet) 0.1 mg PO TID PRN; Protocol PRN Reason: anxiety/restlessness Last Admin: 03/18/24 20:17 Dose: 0.1 mg Clonidine HCl (Clonidine Hcl 0.1 Mg Tablet) 0.1 mg PO DAILY [facility]; Protocol Last Admin: 03/19/24 08:02 Dose: 0.1 mg Doxycycline Monohydrate (Doxycycline Monohydrate 100 Mg Capsule) 100 mg PO BID [facility] Last Admin: 03/19/24 08:04 Dose: 100 mg Folic Acid (Folic Acid 1 Mg Tablet) 1 mg PO DAILY [facility] Last Admin: 03/19/24 08:04 Dose: 1 mg Gabapentin (Gabapentin 100 Mg Capsule) 100 mg PO TID [facility] Last Admin: 03/19/24 15:33 Dose: 100 mg Hydroxyzine HCl (Hydroxyzine Hcl 25 Mg Tablet) 25 mg PO Q6H PRN PRN Reason: Anxiety Ibuprofen (Ibuprofen 600 Mg Tablet) 600 mg PO Q6H PRN PRN Reason: pain (pain scale 0-10) Magnesium Hydroxide (Milk Of Magnesia 30 Ml Oral.Susp) 30 ml PO DAILY PRN PRN Reason: Constipation Methadone HCl (Methadone Hcl 20 Mg/2 Ml Oral.Conc) 50 mg PO DAILY@0800 [facility] Last Admin: 03/19/24 08:00 Dose: 50 mg Nicotine Polacrilex (Nicotine Polacrilex 2 Mg Gum) 4 mg BUCCAL Q2H PRN PRN Reason: Nicotine Cravings Olanzapine (Olanzapine 5 Mg Tablet) 5 mg PO BID PRN PRN Reason: agitation Ondansetron HCl (Ondansetron Odt 8 Mg Tab.Rapdis) 8 mg TRANSLINGU Q12H PRN PRN Reason: Nausea and Vomiting Thiamine HCl (Thiamine Hcl 100 Mg Tablet) 100 mg PO DAILY [facility] Last Admin: 03/19/24 08:03 Dose: 100 mg Allergies Allergies Allergy/AdvReac Type Severity Reaction Status Date / Time No Known Allergies Allergy Verified 03/14/24 15:16 Assessment & Plan Assessment & Plan (1) Opioid use disorder: Status: Acute Code(s): F11.90 - Opioid use, unspecified, uncomplicated Assessment and Plan: * additional 15mg methadone today (total 45mg) * tomorrow (03/18) AM 50mg * COWS discontinued * HIV screen ordered--known history of hepatitis C with VL * 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 to 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 up and obtain additional substance use history (2) Cocaine use disorder: Status: Acute Code(s): F14.10 - Cocaine abuse, uncomplicated (3) PTSD (post-traumatic stress disorder): Status: Acute Code(s): F43.10 - Post-traumatic stress disorder, unspecified (4) MDD (major depressive disorder), recurrent episode, severe: Status: Acute Code(s): F33.2 - Major depressive disorder, recurrent severe without psychotic features Plan Patient is a 49-year-old male with history MDD, PTSD, opiate use disorder, cocaine use disorder, alcohol use disorder who was [place] in [place] ambulance [place] [facility] [place] to overdose on opiate/cocaine and suicidal ideation. 03/16: Addiction medicine consult. Encourage groups. Build rapport. Referral to outpatient psychiatric providers. Discharge planning. 03/17: scoring on CIWA. per rajiv, scheduling methadone 50 daily and DC COWS. start clonidine 0.1 BID@0900,1500 and wellbutrin 150 daily x 3 days, then increase to 300. 03/18: pt would like to F/U at methadone clinic after discharge. start melatonin. continue wellbutrin and clonidine. taper ativan through tomorrow morning. 03/19: poor sleep; DC melatonin per pt request. ativan taper complete. pt less guarded, more engageable. anxious about not being able to get into a program prior to discharge, being homeless and relapsing. increase wellbutrin and clonidine on sunday (at discharge). Reason for continued inpatient stay Substantial Risk for: harm to self, inability to function and rapid decompensation Time Spent With Patient Time: Total time managing care of this patient today __25__ minutes.
[2024-03-19 20:00] VITALS: BP 117/76; PULSE 86; RESP 16; TEMP 36.1; O2SAT 95
[2024-03-19 20:58] VITALS: BP 117/76
[2024-03-20 07:25] VITALS: BP 114/59; PULSE 72; RESP 18; TEMP 36.9; O2SAT 96
[2024-03-20] MEDS: methADONE HCl 20 MG/2 ML ORAL.CONC 50 MG PO (08:16)
[2024-03-20] MEDS: Folic Acid 1 MG TABLET PO (08:17)
[2024-03-20] MEDS: Thiamine HCL 100 MG TABLET PO (08:17)
[2024-03-20] MEDS: Gabapentin 100 MG CAPSULE PO ×3 (08:18→21:11)
[2024-03-20] MEDS: buPROPion HCl XL 150 MG TAB.ER.24H PO (08:18)
[2024-03-20] MEDS: Doxycycline Monohydrate 100 MG CAPSULE PO ×2 (08:18→21:11)
[2024-03-20] MEDS: cephALEXin 500 MG CAPSULE PO ×2 (08:18→21:10)
[2024-03-20] MEDS: cloNIDine HCL 0.1 MG TABLET PO ×2 (08:18→21:10)
--- NOTE | 2024-03-20 12:08 | HO.ADDICTPRO ---
Subjective Subjective Date of Service: 03/20/24 Reason For Visit: SI depression Opiate Dep/Cellulitis Interim History: Patient seen in follow up Methadone dose currently 50mg daily Patient awake, alert, eating lunch when seen by this personal lines underwriter. He reports withdrawal sx have subsided, and would feel better with dose increase prior to discharge Review of Systems Constitutional: Reports as per HPI Mental Status Exam Mental Status Exam Patient Appearance: Well Grooomed and Appropriate Patient Orientation: Person, Place, Time and Situation Level of Consciousness: Awake Patient Behavior: Appropriate and Talkative Mood Description: Calm Affect Description: Calm Speech Pattern: Clear Thought Process: Intact Thought Content: positive for Intact Diagnostics Vital Signs (24Hr): Vital Signs - 24 hr 03/19/24 20:00 03/19/24 20:58 03/20/24 07:25 Temperature 96.9 F 98.4 F Pulse Rate 86 72 Respiratory Rate 16 18 Blood Pressure 117/76 117/76 114/59 L Pulse Oximetry 95 96 Oxygen Delivery Method Room Air Room Air BMI result Body Mass Index 22.2 Labs 03/14/24 17:17 03/14/24 17:17 Medications Medications Current Medications Acetaminophen (Acetaminophen 325 Mg Tablet) 650 mg PO Q6H PRN PRN Reason: Headache/Pain Mild Scale (1-3) Al Hydroxide/Mg Hydroxide (Magnesium Hydrox/Alum Hydrox 30 Ml Oral.Susp) 30 ml PO Q6H PRN PRN Reason: Heartburn/Nausea Aspirin (Aspirin Enteric Coated 325 Mg Tablet.Dr) 325 mg PO Q4H PRN PRN Reason: pain (pain scale 0-10) Bupropion HCl (Bupropion Hcl Xl 150 Mg Tab.Er.24h) 150 mg PO DAILY [facility] Last Admin: 03/20/24 08:18 Dose: 150 mg Cephalexin HCl (Cephalexin 500 Mg Capsule) 500 mg PO BID [facility] Last Admin: 03/20/24 08:18 Dose: 500 mg Clonidine HCl (Clonidine Hcl 0.1 Mg Tablet) 0.1 mg PO TID PRN; Protocol PRN Reason: anxiety/restlessness Last Admin: 03/19/24 20:58 Dose: 0.1 mg Clonidine HCl (Clonidine Hcl 0.1 Mg Tablet) 0.1 mg PO DAILY [facility]; Protocol Last Admin: 03/20/24 08:18 Dose: 0.1 mg Doxycycline Monohydrate (Doxycycline Monohydrate 100 Mg Capsule) 100 mg PO BID [facility] Last Admin: 03/20/24 08:18 Dose: 100 mg Folic Acid (Folic Acid 1 Mg Tablet) 1 mg PO DAILY [facility] Last Admin: 03/20/24 08:17 Dose: 1 mg Gabapentin (Gabapentin 100 Mg Capsule) 100 mg PO TID [facility] Last Admin: 03/20/24 08:18 Dose: 100 mg Hydroxyzine HCl (Hydroxyzine Hcl 25 Mg Tablet) 25 mg PO Q6H PRN PRN Reason: Anxiety Ibuprofen (Ibuprofen 600 Mg Tablet) 600 mg PO Q6H PRN PRN Reason: pain (pain scale 0-10) Magnesium Hydroxide (Milk Of Magnesia 30 Ml Oral.Susp) 30 ml PO DAILY PRN PRN Reason: Constipation Methadone HCl (Methadone Hcl 20 Mg/2 Ml Oral.Conc) 50 mg PO DAILY@0800 [facility] Last Admin: 03/20/24 08:16 Dose: 50 mg Nicotine Polacrilex (Nicotine Polacrilex 2 Mg Gum) 4 mg BUCCAL Q2H PRN PRN Reason: Nicotine Cravings Olanzapine (Olanzapine 5 Mg Tablet) 5 mg PO BID PRN PRN Reason: agitation Ondansetron HCl (Ondansetron Odt 8 Mg Tab.Rapdis) 8 mg TRANSLINGU Q12H PRN PRN Reason: Nausea and Vomiting Thiamine HCl (Thiamine Hcl 100 Mg Tablet) 100 mg PO DAILY [facility] Last Admin: 03/20/24 08:17 Dose: 100 mg Allergies Allergies Allergy/AdvReac Type Severity Reaction Status Date / Time No Known Allergies Allergy Verified 03/14/24 15:16 Assessment & Plan Assessment & Plan (1) Opioid use disorder: Status: Acute Code(s): F11.90 - Opioid use, unspecified, uncomplicated Assessment and Plan: increase methadone to 60mg daily --additional dose titration can occur in outpt [facility]an at discharge referred to [facility] for continuation of treatment at discharge Total time managing care of this patient today _20___ minutes.
--- NOTE | 2024-03-20 13:27 | P.DS_ITS ---
DS: Providers Provider Date of Service: 03/20/24 Date of admission: 03/15/24 18:44 Primary care physician: [facility] Consults: 03/15/24 20:48 Addiction Medicine Routine Consulting Provider: Addiction Covering Reason for consultation: polyaddiction opiates cocaine ? methadone Has provider been notified: No 03/19/24 15:21 Addiction Medicine Routine Consulting Provider: Addiction Covering Reason for consultation: outpt resources available to pt DS: Diagnosis Discharge Diagnosis (1) Opioid use disorder: Status: Acute DS: Medications Discharge Medications Home Medications: Previous Rx's ?Medication ?Instructions ?Recorded cephalexin 500 mg capsule 500 mg PO QID 7 days #28 caps 03/15/24 doxycycline hyclate 100 mg capsule 100 mg PO BID 7 days #14 caps 03/15/24 bupropion HCl 150 mg 24 hr tablet, 150 mg PO BID@0900,1500 30 days 03/20/24 extended release #60 tabs cephalexin 500 mg capsule 500 mg PO BID 2 days #4 caps 03/20/24 clonidine HCl 0.1 mg tablet 0.1 mg PO BID@0900,1500 30 days 03/20/24 #60 tabs doxycycline monohydrate 100 mg 100 mg PO BID 2 days #4 caps 03/20/24 capsule folic acid 1 mg tablet 1 mg PO DAILY 30 days #30 tabs 03/20/24 gabapentin 100 mg capsule 100 mg PO TID 30 days #90 caps 03/20/24 ibuprofen 600 mg tablet 600 mg PO Q6H PRN pain (pain scale 03/20/24 0-10) 30 days #120 tabs methadone 10 mg/mL oral 50 mg (5 mL) PO DAILY@0800 #0 mL 03/20/24 concentrate (Methadose) naloxone 4 mg/actuation nasal 4 mg intranasal Q2M PRN opioid 03/20/24 spray (Narcan) overdose 1 day #2 ea thiamine mononitrate (vit B1) 100 100 mg PO DAILY 30 days #30 tabs 03/20/24 mg tablet Mental Status Exam Mental Status Exam Narrative: Pt is alert and oriented; behavior is less guarded; dressed in hospital attire; eye contact appropriate; Speech is normal rate, volume and not pressured. now that i've got everything worked out, oh, an 8 or a 9. no SI/HI/AVH. Data Data Completed and Pending Completed studies during hospitalization [Text1]: 03/14/24 03/14/24 03/14/24 16:37 17:17 21:14 WBC 22.5 H RBC 3.70 L Hgb 10.8 L Hct 31.9 L MCV 86.2 MCH 29.2 MCHC 33.9 RDW 13.1 Plt Count 224 D MPV 10.5 Immature Gran % (Auto) 0.9 H Neut % (Auto) 88.4 H Lymph % (Auto) 5.5 L [place] % (Auto) 4.8 Eos % (Auto) 0.0 Baso % (Auto) 0.4 Lymph # (Auto) 1.2 [place] # (Auto) 1.1 Eos # (Auto) 0.0 Baso # (Auto) 0.1 Abs Immat Gran (auto) 0.20 H Absolute Neuts (auto) 19.9 H Absolute Nucleated RBC 0.000 Nucleated RBC % (auto) 0.0 Sodium 137 Potassium 4.1 Chloride 104 Carbon Dioxide 25 Anion Gap 12 BUN 20 H Creatinine 0.82 Estim Creat Clear Calc 103.7 Estimated GFR > 60 Random Glucose 76 Calcium 8.2 L Magnesium 2.0 Total Bilirubin 0.5 Direct Bilirubin 0.3 AST 63 H ALT 36 Alkaline Phosphatase 110 Total Protein 6.4 L Albumin 3.2 L Urine Color Yellow Urine Appearance Clear Urine pH 5.5 Ur Specific [place] 1.015 Urine Protein Trace Urine Glucose (UA) Negative Urine Ketones Negative Urine Blood Negative Urine Nitrite Negative Ur Leukocyte Esterase Negative Urine Opiates Screen POSITIVE H Ur Buprenorphine Scrn Positive H Ur Oxycodone Screen Not Detected Urine Methadone Screen Positive H Urine Fentanyl Screen POSITIVE H Ur Barbiturates Screen Not Detected Ur Phencyclidine Scrn Not Detected Ur Amphetamines Screen Not Detected U Benzodiazepines Scrn POSITIVE H Urine Cocaine Screen POSITIVE H U Marijuana (THC) Screen Not Detected Ethyl Alcohol < 10 COVID-19 (INGE) Negative COVID-19 Clin Com See Note Influenza Type A (AGUILAR) Negative Influenza Type B (AGUILAR) Negative Influenza A & B Note See Note DS: Summary Hospital Course Hospital Course: per 03/16 admission note: HPI Narrative: Patient is a 49-year-old male with history MDD, PTSD, opiate use disorder, cocaine use disorder, alcohol use disorder who was brought in by ambulance to [facility] ER secondary to overdose on opiate/cocaine and suicidal ideation. Per crisis report, patient was found unresponsive and administered Narcan by EMS. On arrival to ER patient reported depression suicidal ideation. Patient has a history of IV drug use and polysubstance use. He reports passive suicidal ideation; patient stated, if I , I . denies HI /AH. He reports having lost 45 lb over the last 6 months due to poor appetite; he also reports poor sleep. history of detox admissions and difficulty remaining sober. Patient reports he was working with a social media sr strategy manager at [facility] to try to get into a dual inpatient program. He reports he has no MAT or outpatient psyc hiatric providers. history of cellulitis secondary to IV drug use and substance use. Patient reports he has not been taking medications since he left detox. Patient reports history of suicide attempts via overdose. Utox positive for cocaine, benzodiazepines, fentanyl, buprenorphine, and opiates. During admission assessment, patient presents alert and oriented x3. Irritable. Guarded. Declining to participate in admission interview. Patient stated, there is no point in talking to you. I'm just going to leave here and buy needles and shoot up. Nothing you say to me or anything that I say to you is significant. I would not tell you if I was suicidal . When T/W attempted to ask patient assessment questions; patient would stare at T/W and not respond to questions. Observed out in the milieu but keeping to self. Past Psychiatric History: History of inpatient psychiatric hospitalizations. He reports last admission being 6-7 years ago. History of incarceration. History of detox admissions. History of receiving methadone, Suboxone and Sublocade. He found methadone most helpful. He reports stopping Suboxone about 2 years ago. Medical Evaluation Reviewed: Yes [facility] Medical History Alcohol abuse with withdrawal Alcohol abuse Hepatitis C Cellulitis of left upper extremity Opiate use Surgical History (Updated 03/02/21 @ 05:57 by Sana Vail MD) H/O hernia repair Family History: Father committed suicide when patient was 11 years old. Social History: Homeless. Single. Substance History: Utox positive for cocaine, benzodiazepines, fentanyl, buprenorphine, and opiates. Trauma History: Yes Precis: Patient is a 49-year-old male with history MDD, PTSD, opiate use disorder, cocaine use disorder, alcohol use disorder who was brought in by ambulance to [facility] ER secondary to overdose on opiate/cocaine and suicidal ideation. 03/16: Addiction medicine consult. Encourage groups. Build rapport. Referral to outpatient psychiatric providers. Discharge planning. 03/17: scoring on CIWA. per rajiv, scheduling methadone 50 daily and DC COWS. start clonidine 0.1 BID@0900,1500 and wellbutrin 150 daily x 3 days, then increase to 300. 03/18: pt would like to F/U at methadone clinic after discharge. start melatonin. continue wellbutrin and clonidine. taper ativan through tomorrow morning. 03/19: poor sleep; DC melatonin per pt request. ativan taper complete. pt less guarded, more engageable. anxious about not being able to get into a program prior to discharge, being homeless and relapsing. increase wellbutrin and clonidine on sunday (at discharge). 03/20: increase wellbutrin and clonidine tomorrow. meds reviewed, reconciled, prescribed. discharging tomorrow as per plan, reports having a bed at [facility]. no safety concerns. 03/21: stable. discharged as per plan. methadone dosing increased to 60 mg daily as of today per addiction medicine recommendation. Time Spent with Patient Time attestation: Total time managing care of this patient today __35__ minutes. Discharge Plan Discharge Anticipated Discharge Date/Time: 03/21/24 08:30 Patient Disposition: Xfer Inpatient Rehab Fac Discharge Diagnosis: Major Depressive Disorder PTSD, Chronic Opioid Use Disorder, On Full Agonist Maintenance Cocaine Use Disorder Referrals: Therapy & Psychiatry [Other] - 1 Week (*You can present to the clinic above, Sunday through Sunday between 8am and 8pm or Sunday - Sunday 9am through 5pm, in order to obtain outpatient mental health providers. Please bring a copy of your insurance card with you. ) [facility] (Furnace Keeper) [Other] - 1 Week (*Please reach out to Isabel regarding case management services that are offered through your insurance company. ) Methadone Maintenance [Other] - 1 Week (Walk-In Hours Sunday, Sunday & Sunday: 6 am - 8 am) [facility] [Primary Care Provider] - 1 Week Discharge Medications: New cephalexin 500 mg capsule 500 mg PO QID 7 Days Qty: 28 0RF doxycycline hyclate 100 mg capsule 100 mg PO BID 7 Days Qty: 14 0RF clonidine HCl 0.1 mg Tablet 0.1 mg PO BID@0900,1500 30 Days Qty: 60 0RF Protocol: Hold for SBP< HOLD for SBP < : 90 doxycycline monohydrate 100 mg Capsule 100 mg PO BID 2 Days Qty: 4 0RF cephalexin 500 mg Capsule 500 mg PO BID 2 Days Qty: 4 0RF folic acid 1 mg Tablet 1 mg PO DAILY 30 Days Qty: 30 0RF gabapentin 100 mg Capsule 100 mg PO TID 30 Days Qty: 90 0RF ibuprofen 600 mg Tablet 600 mg PO Q6H PRN (Reason: pain (pain scale 0-10)) 30 Days Qty: 120 0RF bupropion HCl 150 mg Tablet Extended Release 24 Hr 150 mg PO BID@0900,1500 30 Days Qty: 60 0RF thiamine mononitrate (vit B1) 100 mg Tablet 100 mg PO DAILY 30 Days Qty: 30 0RF naloxone [Narcan] 4 mg/actuation spray,non-aerosol 4 mg intranasal Q2M PRN (Reason: opioid overdose) 1 Days Qty: 2 0RF Rx Instructions: spray 1 dose into ONE nostril; alternate nostrils w each dose until help arrives methadone [Methadose] 10 mg/mL concentrate 60 mg PO DAILY 30 Days Qty: 180 0RF Rx Instructions: Partial Fill upon patient request. Discharge Orders: Discharge Order (Routine); Ordered 03/21/24 Ordered By: Shane Boston Diet: Advance to usual diet Activity on Discharge: As tolerated Stand Alone Forms: Patient Portal Discharge page, Community Support Print Language: Danish Activity Restrictions/Additional Instructions: please continue the cephalexin and doxycycline return for fevers, weakness or any other concerns Care Plan Goals: remain safe and stable in the outpatient treatment setting Health Concerns: none Plan of Treatment: take medications as prescribed, attend appointments as scheduled Assessment: not at imminent risk of harm to self or others Patient Instructions: Cellulitis (ED), Leukocytosis (ED), Polysubstance Abuse (ED) Discharge Date/Time: 03/21/24 10:00
[2024-03-20] MEDS: Ibuprofen 600 MG TABLET PO (19:25)
[2024-03-20 20:00] VITALS: BP 105/62; PULSE 79; RESP 16; TEMP 36.9; O2SAT 95
[2024-03-20] MEDS: hydrOXYzine HCL 25 MG TABLET PO (21:14)
[2024-03-20] MEDS: Nicotine Polacrilex 2 MG GUM 4 MG BUCCAL (21:14)
[2024-03-21 07:43] VITALS: BP 99/55; PULSE 72; RESP 14; TEMP 36.9; O2SAT 95
[2024-03-21] MEDS: methADONE HCl 20 MG/2 ML ORAL.CONC 60 MG PO (07:59)
[2024-03-21 08:44] VITALS: BP 128/75
[2024-03-21] MEDS: cloNIDine HCL 0.1 MG TABLET PO (08:44)
[2024-03-21] MEDS: Thiamine HCL 100 MG TABLET PO (08:48)
[2024-03-21] MEDS: cephALEXin 500 MG CAPSULE PO (08:48)
[2024-03-21] MEDS: Gabapentin 100 MG CAPSULE PO (08:48)
[2024-03-21] MEDS: buPROPion HCl XL 150 MG TAB.ER.24H PO (08:48)
[2024-03-21] MEDS: Folic Acid 1 MG TABLET PO (08:48)
[2024-03-21] MEDS: Doxycycline Monohydrate 100 MG CAPSULE PO (08:48)
== END 2024-03-21 10:00 | DRG 751 ==
LOC: HO.ED 03-15 11:04 → HO.PADLT16 03-15 19:06
PROVIDERS: Admitting Provider Psychiatry & Neurology Psychiatry; Emergency Provider Emergency Medicine; Visit Provider Psychiatry & Neurology Psychiatry
DX: F33.2 Major depressive disorder, recurrent severe without psychotic features (principal); F11.20 Opioid dependence, uncomplicated; F43.12 Post-traumatic stress disorder, chronic; F14.10 Cocaine abuse, uncomplicated; F19.10 Other psychoactive substance abuse, uncomplicated; T40.602A Poisoning by unspecified narcotics, intentional self-harm, initial encounter; T40.5X2A Poisoning by cocaine, intentional self-harm, initial encounter; Z59.02 Unsheltered homelessness; Z20.822 Contact with and (suspected) exposure to COVID-19; Z79.899 Other long term (current) drug therapy
CPT/HCPCS: 36415; 80048; 80076; 80307; 81003; 83735; 85025; 87502; 87635; 93005; 99285; S9485

== ENCOUNTER → 2024-03-15 16:10 | Outpatient (BNV) | payer MEDICAID, SELFPAY | PROVIDERS: Admitting Provider Psychiatry & Neurology Psychiatry; Emergency Provider Emergency Medicine; Visit Provider Internal Medicine | DX: I45.10 Unspecified right bundle-branch block (principal) | CPT/HCPCS: 93010 ==

== ENCOUNTER → 2024-03-15 18:44 | Outpatient (BNV) | payer OTHER, SELFPAY | PROVIDERS: Admitting Provider Psychiatry & Neurology Psychiatry; Emergency Provider Emergency Medicine; Visit Provider Registered Nurse | DX: F33.2 Major depressive disorder, recurrent severe without psychotic features (principal); F14.10 Cocaine abuse, uncomplicated; F11.90 Opioid use, unspecified, uncomplicated; F43.11 Post-traumatic stress disorder, acute | CPT/HCPCS: 90792; 99232; 99233 ==

== ENCOUNTER → 2024-03-15 18:44 | Outpatient (BNV) | payer MEDICAID, SELFPAY | PROVIDERS: Admitting Provider Psychiatry & Neurology Psychiatry; Emergency Provider Emergency Medicine; Visit Provider Nurse Practitioner Psychiatric/Mental Health | DX: F11.90 Opioid use, unspecified, uncomplicated (principal) | CPT/HCPCS: 99221; 99231; 99499 ==

== ENCOUNTER 2025-01-13 20:22 | Emergency (ER) | payer OTHER, SELFPAY ==
[2025-01-13] VITALS (12 sets, daily range): BP systolic 74–91; BP diastolic 44–60; PULSE 60–70; RESP 14–20; TEMP 36.4; O2SAT 97–100; BMI 19.8
--- NOTE | 2025-01-13 | ECG_ITS ---
Test Reason : WITHDRAWAL Blood Pressure : */* mmHG Vent. Rate : 70 BPM Atrial Rate : 70 BPM P-R Int : 144 ms QRS Dur : 108 ms QT Int : 464 ms P-R-T Axes : 44 41 35 degrees QTcB Int : 501 ms Normal sinus rhythm Prolonged QT Abnormal ECG When compared with ECG of 15-Mar-2024 16:10, QT has lengthened Referred By: Generic ED Physician Electronically Signed By: REBEKAH SIEGEL
--- NOTE | ~2025-01-13 | XR_ITS ---
CLINICAL HISTORY: r o pna CHEST X-RAY FRONTAL VIEW COMPARISON: None provided. FINDINGS: A single frontal view of the chest was performed. The cardiac size and mediastinal silhouette are within normal limits. The lungs are clear. There are no acute infiltrates or pleural effusions. There is no pneumothorax. IMPRESSION: 1. No acute disease. This document has been electronically signed by: Nghia Hong M.D. on 01/13/2025 23:46:54
--- NOTE | 2025-01-13 20:58 | ED.GENADULT ---
HPI - General Adult General Chief complaint: ETOH/Substance Use Stated complaint: ETOH w/d was in detox then 2 days in Residential no ETOH Time Seen by Provider: 01/13/25 20:38 Source: patient and EMS Mode of arrival: EMS Limitations: other History of Present Illness ED Provider: Dr. Brina Nielson HPI narrative: Patient comes to the emergency room via ambulance. Seems that patient reported to a usp, requesting to be admitted. Patient's said that he was previously under police custody for 2 days and had not been drinking alcohol and was having withdrawal symptoms. Patient states that he tried using heroin but it coagulated? And could not injected. Patient states that he is withdrawing from both, heroin and alcohol. Patient reported to her usp that he has been having productive cough, chills, feeling lethargic Related Data Previous Rx's ?Medication ?Instructions ?Recorded cephalexin 500 mg capsule 500 mg PO QID 7 days #28 caps 03/15/24 doxycycline hyclate 100 mg capsule 100 mg PO BID 7 days #14 caps 03/15/24 bupropion HCl 150 mg 24 hr tablet, 150 mg PO BID@0900,1500 30 days 03/20/24 extended release #60 tabs cephalexin 500 mg capsule 500 mg PO BID 2 days #4 caps 03/20/24 clonidine HCl 0.1 mg tablet 0.1 mg PO BID@0900,1500 30 days 03/20/24 #60 tabs doxycycline monohydrate 100 mg 100 mg PO BID 2 days #4 caps 03/20/24 capsule folic acid 1 mg tablet 1 mg PO DAILY 30 days #30 tabs 03/20/24 gabapentin 100 mg capsule 100 mg PO TID 30 days #90 caps 03/20/24 ibuprofen 600 mg tablet 600 mg PO Q6H PRN pain (pain scale 03/20/24 0-10) 30 days #120 tabs methadone 10 mg/mL oral 60 mg (6 mL) PO DAILY 30 days #180 03/20/24 concentrate (Methadose) mL naloxone 4 mg/actuation nasal 4 mg intranasal Q2M PRN opioid 03/20/24 spray (Narcan) overdose 1 day #2 ea thiamine mononitrate (vit B1) 100 100 mg PO DAILY 30 days #30 tabs 03/20/24 mg tablet Allergies Allergy/AdvReac Type Severity Reaction Status Date / Time No Known Allergies Allergy Verified 01/13/25 20:29 Review of Systems Review of Systems: Constitutional : No Weight loss, No Fever, complaining of chills Chills, No Night Sweats, complaining of fatigue, generalized malaise ENT/Mouth : No Hearing loss, No Ear Pain, No Nasal Congestion, No Sinus Pain, No Hoarseness, No sore throat, No Rhinorrhea, No Swallowing Difficulty Eyes: No Eye Pain, No Swelling, No Redness, No Foreign Body, No Discharge, No Vision Changes Cardiovascular : No Chest Pain, No SOB, No Dyspnea on Exertion, No Orthopnea, No Edema, No Palpitations Respiratory : Complaining of productive cough, No Wheezing, No Smoke Exposure, No Dyspnea Gastrointestinal : No Nausea, No Vomiting, No Diarrhea, No Constipation, No abdominal Pain, No Hematochezia, No Melena Genitourinary : no irregular bleeding, No Dysuria, No Urinary Frequency, No Hematuria, No Urinary Incontinence, No Urgency, No Flank Pain, No Urinary Flow Changes, No Hesitancy Musculoskeletal : No joint pain, No Myalgias, No Joint Swelling Skin : No Skin Lesions, No rash Neuro : No Weakness, No Numbness, No Paresthesias, No Loss of Consciousness, No Dizziness, No Headache Psych : No Anxiety/Panic, No Depression, No SI/HI/AH/VH, No Social Issues, Heme/Lymph: No Bruising, No Bleeding,No Lymphadenopathy Endocrine : No Polyuria, No Polydipsia, No Temperature Intolerance [facility] Past Medical History Medical History Elevated WBC count Polysubstance abuse Alcohol abuse with withdrawal Alcohol abuse Hepatitis C Cellulitis of left upper extremity Opiate use Surgical History (Updated 03/02/21 @ 05:57 by Sana Vail MD) H/O hernia repair Social History Social History (Updated 03/02/21 @ 05:58 by Sana Vail MD) Household Members: None and Other Housing: Homeless Do you presently have visiting nurse or other home services: No Alcohol intake: current Alcohol intake frequency: 3 or more drinks per day Alcohol type: beer and hard liquor Patient Tobacco Use Status: Tobacco use Unknown Tobacco use type: Cigarette Cigarette Packs Per Day: 1.5 Smoked in Last 30 Days: Yes e-Cigarette/Vaping Use: Never Used Second Hand Smoke Exposure: No Use of substances other than those prescribed or required for medical reasons: Yes Substance Use Type: Crack/Cocaine and Heroin Substance Use Type Other:: fentanyl, xylazine? Substance Use Frequency: Daily Last Used Substance: Days (ago) Advance Directives: No Advance Directives Information Provided: No Advance Directives Date on File: 03/02/21 service: No Current occupational status: unemployed Sexual orientation: Unable to collect Physical Exam ED Exam Exam: Appearance: Alert. Oriented X3. No acute distress. Somnolent but easily arousable Eyes: Pupils equal, round and reactive to light. ENT: Pharynx normal. Neck: Normal inspection. Neck supple. No lymph nodes noted. No crepitus CVS: Normal heart rate and rhythm. Pulses normal. Normal S1 and S2 Respiratory: No respiratory distress. Breath sounds normal. No Wheezing. No rales Abdomen: Soft and nontender. No rigidity. No distention. Skin: Skin warm and dry. Normal skin color. Normal skin turgor. Extremities: No lower extremity edema. No Lacerations. No Rash Neuro: Oriented X 3. No motor deficit. No sensory deficit. Moving all extremities. No slurred speech. CN 2 through 12 grossly intact Psych: calm, cooperative, normal affect Vital Signs: Vital Signs - 24 hr 01/13/25 20:28 01/13/25 20:31 01/13/25 20:57 Temperature 97.6 F Pulse Rate 60 70 Respiratory Rate 20 Blood Pressure 79/47 L 77/44 L 74/48 L Pulse Oximetry 97 Oxygen Delivery Method Room Air 01/13/25 21:05 01/13/25 21:12 01/13/25 21:27 Temperature Pulse Rate 64 67 Respiratory Rate 15 14 Blood Pressure 74/48 L 83/57 L 89/56 L Pulse Oximetry Oxygen Delivery Method 01/13/25 21:42 01/13/25 22:27 01/13/25 22:42 Temperature Pulse Rate 67 67 66 Respiratory Rate 15 Blood Pressure 87/60 L 88/54 L 91/56 L Pulse Oximetry Oxygen Delivery Method Venturi Mask 01/13/25 23:05 01/14/25 00:09 01/14/25 00:57 Temperature Pulse Rate 63 64 63 Respiratory Rate 18 Blood Pressure 91/58 L 96/64 100/65 Pulse Oximetry Oxygen Delivery Method 01/14/25 01:12 01/14/25 01:50 Temperature Pulse Rate 62 63 Respiratory Rate 19 18 Blood Pressure 100/71 102/71 Pulse Oximetry Oxygen Delivery Method BMI result Body Mass Index 19.8 Course Course Course Narrative: When patient arrived, patient's blood pressure was in the 70s, 79/47. Prior to arrival, EMS attempted putting an IV line but they could not. When patient arrived, I attempted putting an ultrasound-guided IV line. Patient has good veins by ultrasound. However, when the needle barely poked his skin, patient has started flailing his arms and legs, starting shaking and screaming, patient apologized but said that he refuses to be poked. Patient wanted to be discharged. However, after talking to the patient, we convinced him to stay. Patient's blood pressure was still in the 70s patient agreed ring p.o. fluids and take midodrine to at least help the blood pressure go up. Patient declined any blood work Patient was given p.o. midodrine and put in Trendelenburg. Patient's blood pressure is slowly improvement, now 87/60. Patient has not drank enough fluids. Patient being encouraged to keep drinking. Medications Administered Discontinued Medications Generic Name Dose Route Start Last Admin Trade Name Freq PRN Reason Stop Dose Admin Midodrine 10 mg 01/13/25 20:57 01/13/25 21:05 Midodrine Hcl 10 Mg Tablet PO 01/13/25 20:58 10 mg ONCE ONE Administration Medical Decision Making Medical Decision Making [facility] Narrative: Patient's blood pressure was initially in the high 70s. Heart rate in the 60s, oxygen 97%. Patient was adamant that he did not want any blood work. Patient went to leave [place]. After convincing the patient, he agreed to drink plenty of fluids p.o. and he took p.o. midodrine as well. It has been an hours since he took midodrine and had almost a L and a half of p.o. fluids including water and cindy alicia, patient's blood pressure is 102/71, heart rate 63, temperature 97.6 degrees, oxygen saturation 99% on room air Patient is still adamant that he does not want a detox program, does not want to talk to the care//sude team Patient states that he is grateful for what we did for him but he no longer wishes any detox programs or any medical interventions. Patient is awake, alert and oriented x3, coherent, normal vitals, clinically sober, normal steady gait Patient did not provide a urine. Patient was provided with home Narcan. Patient accepts that he does inject heroin Chest x-ray did not show any acute abnormality. Patient likely has a viral syndrome Patient is still adamant that he does not want any blood work to be done. Does not want any further medications either. Patient states that he feels well. Differential Diagnosis Differential Diagnoses: The differential diagnosis associated with the presentation includes (Alcohol intoxication, polysubstance abuse) Admission/Observation Consideration of admission/observation: Escalation of care including admission/observation considered (Observation was considered. Patient declined any further medical tests or interventions or consults) Independent Interpretation I performed an independent interpretation of an: Plain X-Ray Radiology Impression Discussion of test interpretation with radiology: I have reviewed the radiologist's reading. Radiologist Impression: FINDINGS: A single frontal view of the chest was performed. The cardiac size and mediastinal silhouette are within normal limits. The lungs are clear. There are no acute infiltrates or pleural effusions. There is no pneumothorax. IMPRESSION: 1. No acute disease. Critical Care Time Critical Care Time Critical Care Time: Yes Total Critical Care Time: 45 Attestation: I have personally provided critical care time. Time includes review of lab data, radiology results, discussion with consultants, and monitoring for potential decompensation. Intervention performed as documented. Discharge Plan Discharge Clinical Impression: Polysubstance abuse, Viral URI, Acute hypotension Patient Disposition: Home, Self-Care Instructions: Polysubstance Use Disorder (ED), Viral Syndrome (ED) Additional Instructions: Opiate use disorder You were seen in our Emergency Department today for treatment of opiate use disorder. You may have been dosed with medication for opiate use disorder (MOUD) in the form of suboxone or methadone. You may experience feeling some withdrawal symptoms and this is normal. The? dose in the Emergency Department is a starting dose and meant to be titrated up once you follow up with a clinic. Please do not feel discouraged, it is a process. The nurse has reviewed with you where to follow up and what information to bring with you, to continue treatment. You also may have been given naloxone (narcan) to take home with you. This medication is used to potentially treat opiate overdose. If you decide you want to stop or cut down on how much you?re using, you can call or walk into our outpatient Addiction Treatment office: [facility] (M-F 9am-5p) [address], [address] [phone] You may have been provided with safer injection?items, please take time to take care of YOU and your health. Use new supplies whenever possible to lessen the chances of infections and other illnesses.? ?If you need more supplies, please go [facility],? [address] [place] [address] OR you can call or text to coordinate delivery of safer supplies. You were also provided a list of several treatment providers in the area.? If you experience any worsening symptoms you cannot control please return to the ED or call 911. Please follow up at your next appointment. Things to look out for are fevers, chest pain, shortness of breath, severe pain, dizziness, fainting or any other concerns. Prescriptions: No Action cephalexin 500 mg capsule 500 mg PO QID 7 Days Qty: 28 0RF doxycycline hyclate 100 mg capsule 100 mg PO BID 7 Days Qty: 14 0RF clonidine HCl 0.1 mg Tablet 0.1 mg PO BID@0900,1500 30 Days Qty: 60 0RF Protocol: Hold for SBP< HOLD for SBP < : 90 doxycycline monohydrate 100 mg Capsule 100 mg PO BID 2 Days Qty: 4 0RF cephalexin 500 mg Capsule 500 mg PO BID 2 Days Qty: 4 0RF folic acid 1 mg Tablet 1 mg PO DAILY 30 Days Qty: 30 0RF gabapentin 100 mg Capsule 100 mg PO TID 30 Days Qty: 90 0RF ibuprofen 600 mg Tablet 600 mg PO Q6H PRN (Reason: pain (pain scale 0-10)) 30 Days Qty: 120 0RF bupropion HCl 150 mg Tablet Extended Release 24 Hr 150 mg PO BID@0900,1500 30 Days Qty: 60 0RF thiamine mononitrate (vit B1) 100 mg Tablet 100 mg PO DAILY 30 Days Qty: 30 0RF naloxone [Narcan] 4 mg/actuation spray,non-aerosol 4 mg intranasal Q2M PRN (Reason: opioid overdose) 1 Days Qty: 2 0RF Rx Instructions: spray 1 dose into ONE nostril; alternate nostrils w each dose until help arrives methadone [Methadose] 10 mg/mL concentrate 60 mg PO DAILY 30 Days Qty: 180 0RF Rx Instructions: Partial Fill upon patient request. Print Language: Qatari
--- NOTE | 2025-01-13 20:59 | PC.NURSE ---
Dr. Nielson attempted to insert ultrasound guided IV. Pt pulled arm away violently and states No more, I am done. I know I am a junkie but I don't hurt like that . This RN and Dr. Nielson both explained to pt that his blood pressure is very low. Pt given pitcher of fluid to drink and encouraged fluid intake. Pt refusing additional attempts at IV access or obtaining blood work. Pt able to state place and date. Pt states that he had been in police custody the last two days, was taken to court and let go, states he got an uber to a detox place and was given a detox drink possibly consisting of librium and vitamins to help with withdrawal symptoms and that staff recommended he come to the hospital. Pt states he wants to go and will feel better when he leaves. At this time patient is drinking fluids.
[2025-01-14 00:09] VITALS: BP 96/64; PULSE 64
[2025-01-14 00:57] VITALS: BP 100/65; PULSE 63; RESP 18
[2025-01-14 01:12] VITALS: BP 100/71; PULSE 62; RESP 19
[2025-01-14 01:50] VITALS: BP 102/71; PULSE 63; RESP 18
[2025-01-14] MEDS: Naloxone HCl Nasal TAKE HOME 4 MG SPRAY 8 MG NOSTRILALT (02:20)
[2025-01-14 02:29] VITALS: BP 102/71; PULSE 63; RESP 18; TEMP 36.4; O2SAT 99
== END 2025-01-14 02:30 | disposition home or self-care (01) ==
PROVIDERS: Emergency Provider Emergency Medicine
DX: F19.10 Other psychoactive substance abuse, uncomplicated (principal); J06.9 Acute upper respiratory infection, unspecified; I95.9 Hypotension, unspecified
CPT/HCPCS: 71045; 93005; 99284; 99285

== ENCOUNTER → 2025-01-13 20:44 | Outpatient (BNV) | payer OTHER, SELFPAY | PROVIDERS: Emergency Provider Emergency Medicine; Visit Provider Internal Medicine | DX: R94.31 Abnormal electrocardiogram [ECG] [EKG] (principal); Z13.6 Encounter for screening for cardiovascular disorders | CPT/HCPCS: 93010 ==

== ENCOUNTER → 2025-01-13 22:28 | Outpatient (BNV) | payer OTHER, SELFPAY | PROVIDERS: Emergency Provider Emergency Medicine; Visit Provider Radiology Diagnostic Radiology | DX: R05.9 Cough, unspecified (principal) | CPT/HCPCS: 71045 ==